=== PATIENT | female | born 2000 | race Caucasian/White ===

== ENCOUNTER 2020-05-01 04:38 | Inpatient (IN) ==
[2020-05-01] MEDS ORDERED: BUTORPHANOL TARTRATE 1 MG/ML VIAL IV PRN (05:05)
[2020-05-01] MEDS ORDERED: ALBUTEROL HFA 8 GM INHALER INH PRN (05:29)
[2020-05-01 05:37] LABS: Hematocrit (blood only) 33.5 % (37-47); Hemoglobin 10.7 g/dL (12.0-16.0); Mean Corpuscular Hemoglobin 29.2 pg (25-34); Mean Corpuscular Volume 91.5 fL (80-100); Platelet Count 259 K/uL (130-400); RDW Coefficient of Variation 15.3 % (11.5-14.5); RDW Standard Deviation 51.1 fL (36.4-46.3); Red Blood Count 3.66 M/uL (4.2-5.4); White Blood Count 16.34 K/uL (4.8-10.8)
[2020-05-01 05:45] LABS: Mean Corpuscular Hgb Conc 31.9 g/dL (32-36)
[2020-05-01] MEDS: LACTATED RINGER'S 1,000 ML IV PRN ×4 (07:19→17:08)
[2020-05-01] MEDS ORDERED: OXYTOCIN 30 UNITS/500 ML BAG IV PRN ×2 (07:44→18:22)
--- NOTE | 2020-05-01 07:52 | History & Physical Report ---
Date of Service May 01, 2020 Assessment & Plan (1) Spontaneous rupture of amniotic membranes: 19 yo at 39.4 wks with SROM/ PROM, no cervical change, GDMA2 on insulin, smoker, GBS negative VSS Afebrile FHR reassuring Plan to augment with Oxytocin, epidural for pain when she desires Continue to monitor (2) Gestational diabetes mellitus (GDM): History of Present Illness Primary Care Provider: NO PCP Patient is a 19 yo at 39.4 wks who presented with SROM at 02:30 this morning It has been a lot and clear Contractions irregular No VB +FM Her has been complicated by 1) GDAM2: on insulin, 10 units daily, last growth US was normal 2) Asthma 3) smoker: 4-5 cig/ day 4) obesity 5) h/o depresion: of meds, desires to restart Prozac Allergies Allergy/AdvReac Type Severity Reaction Status Date / Time amoxicillin Allergy Hives Verified 04/23/20 23:37 Penicillins Allergy Hives Verified 04/23/20 23:37 Sulfa (Sulfonamide Allergy Hives Verified 04/23/20 23:37 Antibiotics) Home Medications Home Medications Medication Instructions Recorded Confirmed Type vit-iron fum-folic ac 1 tab PO DAILY 01/21/20 05/01/20 History [ Vitamin] albuterol sulfate 2 puff INHALATION Q4 PRN 04/23/20 05/01/20 History Novolin N Flexpen 10 units SC HS 05/01/20 05/01/20 History Patient History Medical History Anxiety Asthma Depression Surgical History History of appendectomy History of tonsillectomy [place] teeth extracted Social History Preferred Language: [place] Communication Ability: Effective 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 Beliefs That Will Affect Care: None marital status: Single Current Living Situation: Alone Other Information That Helps Us Care for You: No Feels Safe at Home: Yes Safety Concerns: Feels Safe At This Time Smoking Status: Current every day smoker Tobacco Type: cigarettes ; Cigarettes Per Day: 5 ; Do You Dip or Chew Tobacco: No ; Second Hand Exposure: Yes ; Tobacco Cessation Education Requested by Patient: No Hx Alcohol Use: No Hx Substance Use: No OB History [employer] History No h/o STD's, n HSV/ Chlam/ GC Review of Systems All systems reviewed & are unremarkable except as noted in HPI & below Physical Exam Constitutional: WD/WN, vitals as above well developed and well nourished Comfortable, NAD Gastrointestinal (Abdomen): normal bowel sounds, soft, nontender, no hepatosplenomegaly (Gravid: Alex 7-8 lb) Genitourinary: normal external appearance OB Exam Abdomen: + vertex Manual OB Exam: + cervical dilation 2 cm, + cervical effacement 70% and + station high OB Exam Monitor Tracing: + external uterine monitor used and + category I Results & Data Vital Signs (Past 12 Hours) Vital Signs Temp Pulse Resp BP 05/01/20 07:00 36.5 C 101 H 20 109/61 05/01/20 04:53 36.7 C 133 H 20 123/74 Laboratory Results Lab Results 05/01/20 05/01/20 05/01/20 Range/Units 05:11 05:25 07:04 WBC 16.34 H (4.8-10.8) K/uL RBC 3.66 L (4.2-5.4) M/uL Hgb 10.7 L (12.0-16.0) g/dL Hct 33.5 L (37-47) % MCV 91.5 (80-100) fL MCH 29.2 (25-34) pg MCHC 31.9 L (32-36) g/dL RDW Std Deviation 51.1 H (36.4-46.3) fL RDW Coeff of Ruddy 15.3 H (11.5-14.5) % Plt Count 259 (130-400) K/uL MPV 10.0 (7.4-10.4) fL POC Glucose 123 H 91 (70-99) mg/dl
--- NOTE | 2020-05-01 08:46 | Obstetrical Progress Note ---
Date of Service May 01, 2020 Assessment & Plan Admission and Anticipated Discharge Date Admission Date: May 01, 2020 Subjective Her nurse was unable to monitor contractions on her side and asked for intruterine monitors Placed IUPC and fse Continue to monitor Results & Data ([facility]) Vital Signs (Past 12 Hours) Vital Signs Temp Pulse Resp BP 05/01/20 08:14 96 H 20 118/66 05/01/20 07:00 36.5 C 101 H 20 109/61 05/01/20 04:53 36.7 C 133 H 20 123/74
[2020-05-01] MEDS ORDERED: GLUCOSE 10 TABS/TUBE PO PRN (09:00)
[2020-05-01] MEDS ORDERED: GLUCAGON FOR INJ 1 MG VIAL IM PRN (09:00)
[2020-05-01] MEDS: INSULIN ASPART 100 UNITS/ML 3 ML PEN SC SCH ×3 (09:00→16:42)
[2020-05-01] MEDS ORDERED: CARBOHYDRATES FOR HYPOGLYCEMIA PO PRN (09:00)
[2020-05-01] MEDS ORDERED: DEXTROSE 50% 50 ML SYRINGE IV PRN (09:00)
[2020-05-01] MEDS ORDERED: GLUCOSE 40% GEL 15 GM TUBE PO PRN (09:00)
[2020-05-01] MEDS ORDERED: fentaNYL citrate 100 MCG/2 ML VIAL ONE (09:28)
[2020-05-01] MEDS ORDERED: BUPIVACAINE 0.25% 30 ML VIAL ONE (09:28)
[2020-05-01] MEDS ORDERED: ePHEDrine sulfate 50 MG/ML AMP ONE (09:28)
[2020-05-01] MEDS ORDERED: fentaNYL 2MCG/ML ROPIV 1.25MG/ML 100 ML BAG EPI ONE (09:29)
--- NOTE | 2020-05-01 09:55 | Anesthesiology Consultation ---
Date of Service May 01, 2020 Assessment & Plan (1) Encounter for pre-operative examination: Chart Review Chart Review: Acceptable Risk for Surgery and Patient NOT seen in Pre Admission Testing Consults Requested none ASA ASA3 Proposed Anesthesia Anesthesia Type: Labor Epidural Risk / Benefits Reviewed With: PT / POA / Parent / Guardian, Accepts Plan and Informed Consent Obtained History Height/Weight Height: 5 ft 2 in Weight: 112.037 kg Allergies Allergy/AdvReac Type Severity Reaction Status Date / Time amoxicillin Allergy Hives Verified 04/23/20 23:37 Penicillins Allergy Hives Verified 04/23/20 23:37 Sulfa (Sulfonamide Allergy Hives Verified 04/23/20 23:37 Antibiotics) Medications Home Medications Medication Instructions Recorded Confirmed Last Taken vit-iron fum-folic ac 1 tab PO DAILY 01/21/20 05/01/20 04/30/20 [ Vitamin] albuterol sulfate 2 puff INHALATION Q4 PRN 04/23/20 05/01/20 Unknown Novolin N Flexpen 10 units SC HS 05/01/20 05/01/20 04/30/20 21:00 Active Medications Generic Name Dose Route Start Last Admin Trade Name Freq PRN Reason Stop Dose Admin Lactated Ringer's 1,000 mls @ 125 mls/hr 05/01/20 05:01 05/01/20 10:11 Lr IV 05/03/20 05:00 125 mls/hr .Q8H PRN Infusion L&D Protocol Protocol Oxytocin 30 units in 500 mls @ 2 mls/hr 05/01/20 07:44 05/01/20 10:24 Pitocin IV 05/03/20 07:43 0.36 units/hr .Q24H PRN 6 mls/hr Labor Induction/Augmentation Titration Protocol 0.12 UNITS/HR NPO Date Last Intake of Fluids: 05/01/20 Time Last Intake of Fluids: 10:24 Date Last Intake of Solids: 04/30/20 Time Last Intake of Solids: 20:00 Past Medical History Medical History Anxiety Asthma Depression Exercise / Class Metabolic Activity II 4-5 Yardwork/Stairs/Walk up hill Past Surgical History Surgical History History of appendectomy History of tonsillectomy [place] teeth extracted Past Anesthesia History No Hx of Anesthesia Complications History of PONV No Hx of PONV Social History Smoking Status: Current every day smoker tobacco type: cigarettes Smoking cigarettes per day: 5 Do You Dip or Chew Tobacco: No Hx Alcohol Use: No Hx Substance Use: No substance use type: does not use Review of Systems Patient denies history of abnormal bleeding or bleeding disorder. Patient denies active use of anticoagulants other than low dose aspirin. Patient denies numbness, tingling or weakness in lower extremities. Physical Exam Vital Signs Last Vital Signs Temp 36.4 C L 05/01/20 09:10 Pulse 97 H 05/01/20 09:14 Resp 20 05/01/20 09:10 BP 144/84 H 05/01/20 09:14 Constitutional + obese (Gravid) ENMT Mouth: no TMJ abnormality and oral opening not small Thyromental Distance: > or= 3.5 Finger Breadths Mallampati Class: II Mouth / Teeth: 1. Tongue ring 2. Chip Neck normal visual inspection; neck extension not limited Respiratory normal respiratory effort Auscultation: lungs clear to auscultation bilaterally Cardiovascular Rate/Rhythm: regular rate and regular rhythm Heart Sounds: no murmur Neurologic moves all extremities Motor/Sensory: no sensory deficit Psychiatric Orientation: alert and oriented x 3 Testing Laboratory Results 05/01/20 05:25 05/01/20 05/01/20 05/01/20 09:03 07:04 05:11 POC Glucose 85 91 123 H
[2020-05-01] MEDS ORDERED: DiphenhydrAMINE HCL 50 MG/ML VIAL IV PRN (10:25)
[2020-05-01] MEDS ORDERED: NALOXONE HCL 1 MG in SODIUM CHLORIDE 0.9% 1000ML 1,000 ML IV PRN (10:25)
[2020-05-01] MEDS ORDERED: ONDANSETRON INJ 2 MG/ML 2 ML VIAL IV PRN ×3 (10:25→21:04)
[2020-05-01] MEDS ORDERED: fentaNYL 2MCG/ML ROPIV 1.25MG/ML 100 ML BAG EPI PRN (10:25)
[2020-05-01] MEDS ORDERED: NALOXONE HCL 0.4 MG/1 ML VIAL/CARP IV PRN (10:25)
[2020-05-01] MEDS ORDERED: ePHEDrine sulfate 50 MG/ML AMP IV PRN (10:25)
[2020-05-01] MEDS ORDERED: miSOPROStoL 200 MCG TAB ONE ×3 (16:38→16:51)
[2020-05-01] MEDS ORDERED: METHYLERGONOVINE MALEATE 0.2 MG/ML AMP ONE ×2 (16:39→17:10)
[2020-05-01] MEDS ORDERED: CLINDAMYCIN 900 MG in DEXTROSE 5% 50 ML IV STA (16:42)
[2020-05-01] MEDS ORDERED: CARBOPROST TROMETHAMINE 250 MCG/ML AMPUL ONE ×2 (16:48→17:26)
[2020-05-01] MEDS ORDERED: SODIUM CHLORIDE 0.9% 250 ML IV PRN (16:54)
[2020-05-01] MEDS: OXYTOCIN 30 UNITS/500 ML BAG IV PRN ×2 (16:58→17:33)
[2020-05-01] MEDS ORDERED: ALBUMIN HUMAN 5% 12.5 GM/250 ML VIAL IV ONE (17:12)
[2020-05-01] MEDS ORDERED: TRANEXAMIC ACID / 0.7% NACL 1000MG/100ML BAG IV ONE (17:41)
[2020-05-01 17:47] LABS: Hematocrit (blood only) 29.7 % (37-47); Hemoglobin 9.4 g/dL (12.0-16.0)
[2020-05-01] MEDS ORDERED: PHENYLEPHRINE 100MCG/ML 5ML SYR ONE (18:03)
[2020-05-01] MEDS ORDERED: HYDROCORTISONE ACETATE 25 MG SUPP PR PRN (18:22)
[2020-05-01] MEDS ORDERED: SUPERCREAM 0.870% 15 GM JAR EXT PRN (18:22)
[2020-05-01] MEDS ORDERED: METHYLERGONOVINE MALEATE 0.2 MG/ML AMP IM ONE (18:22)
[2020-05-01] MEDS ORDERED: DIPHTHERIA/TETANUS/PERTUSSIS 0.5 ML SYR/VIAL IM ONE (18:22)
[2020-05-01] MEDS ORDERED: ACETAMINOPHEN 325 MG TAB PO PRN (18:22)
[2020-05-01] MEDS ORDERED: CARBOPROST TROMETHAMINE 250 MCG/ML AMPUL IM ONE (18:22)
[2020-05-01] MEDS ORDERED: MEASLES, MUMPS & RUBELLA VIRUS VIAL SQ ONE (18:22)
[2020-05-01] MEDS ORDERED: BENZOCAINE 20% AER SPR 82.5 GM CAN EXT PRN (18:22)
[2020-05-01] MEDS ORDERED: bisacodyL 10 MG SUPP PR PRN (18:22)
[2020-05-01] MEDS ORDERED: OXYCODONE/ACETAMINOPHEN 5mg/325mg TAB PO PRN (18:22)
[2020-05-01] MEDS ORDERED: miSOPROStoL 200 MCG TAB PR ONE (18:22)
[2020-05-01 18:27] LABS: Fibrinogen 506 mg/dl (184-400); Partial Thromboplastin Time 28.2 Seconds (21.0-31.0)
[2020-05-01] MEDS: METHYLERGONOVINE MALEATE 0.2 MG TAB PO SCH ×2 (19:57→21:18)
--- NOTE | 2020-05-01 20:02 | Delivery Summary ---
DATE OF OPERATION: 05/01/2020 DATE OF DELIVERY: 05/01/2020. TIME OF DELIVERY: 1617 p.m. OPERATION: Spontaneous vaginal delivery, hemorrhage managed by medical therapy, bed side curettage, Bakri balloon placement and IV Crystalloids and Packed RBC transfusion. DETAILS OF DELIVERY: The patient was found to be fully dilated and desired to push. She pushed for about 25 minutes and delivered the head without difficulty and then shoulders were delivered with minimal traction. There was a nuchal cord around the neck x2. Those were reduced and baby was handed to the mother where mouth and nose were suctioned. Cord was clamped x2 and cut at 1 minute delay. Cord blood was obtained. Vagina and perineum were checked for lacerations. There were first degree lacerations on both labia as well as at the posterior fourchette. Those were repaired with 3-0 Vicryl on SH needle and excellent hemostasis was achieved. Then placenta was found to be in the vagina, delivered spontaneous as intact and complete. Uterus was explored and found to be boggy and full of blood clots. Those were emptied and then massaged bimanually. IV oxytocin was started as a bolus and the uterus was still boggy with clots in the cavity. Then rectal Cytotec tablets were placed and IM Methergine was given. Then gloves were changed and with a Boom curette, uterine cavity was curetted at the bedside while her nurse was applying gentle fundal pressure towards myself to stabilize it. The patient had good epidural, did not feel any pain nor discomfort. All uterine cavity and krishna were curetted and only clots were obtained. Uterine massage was done again. The patient was still trickling bright red blood. mild asthma. At that point her pulse ox was 100%, blood pressure was stable and pulse was at low 100s. Crane catheter was also inserted. She has a history of mild intermittent asthma, controlled by Albuterol inhaler as needed ( 1-2 times amonth) She was given Hemabate IM one dose. Despite all those measures patient was still having bright red bleeding. Cervix and vagina were checked to be intact, the trickling of blood was coming from uterine cavity. Her blood pressure dropped to 60s/30s with a pulse going up to 140s. She was started a second IV site and IV lactated ringer bolus was started. She was placed in Trendelenburg position. Anesthesiologist was called to the room and gave her IV albumin and started IV crystalloids, type and crossed 2 units. Then the Bakri balloon was inserted into the uterus, inflated with sterile water about 250 mL and then bleeding stopped. Uterus was firm and no bleeding from the Bakri catheter. With IV fluids and IV albumin her blood pressures came up to 90s/50s, and pulse came down to low 100. The patient was cooperative and speaking all through. She was also started on IV clindamycin and a total EBL was about 1000 mL with best estimate. The baby was a viable male , Apgars were 8/9, weight is pending. No other complications happened. I was present during whole procedure. Dr Murphy was present for her part. see her notes for details. Dr Santos also presented for help. I attest to the content of the Intraoperative Record and any orders documented therein. Any exceptions are noted below. JUANY
[2020-05-01] MEDS ORDERED: METHYLERGONOVINE MALEATE 0.2 MG/ML AMP IM STA (20:03)
--- NOTE | 2020-05-01 20:03 | Obstetrical Progress Note ---
Date of Service May 01, 2020 Assessment & Plan Admission and Anticipated Discharge Date Admission Date: May 01, 2020 Subjective Late entry from 1830 Patient is reevaluated She feels well VSS Afebrile No bleeding from Bakri balloon tube, none in perineum Uterus is firm Crane: dark small urine in tube PRBBC is ready, she signed an informed consent for transfusion Continue to monitor closely Results & Data ([facility]) Vital Signs (Past 12 Hours) Vital Signs Temp Pulse Resp BP Pulse Ox 05/01/20 19:56 102 H 99 05/01/20 19:51 101 H 97 05/01/20 19:46 102 H 98 05/01/20 19:45 102 H 107/59 L 05/01/20 19:41 100 H 97 05/01/20 19:38 36.9 C 100 H 18 110/58 L 96 05/01/20 19:36 103 H 97 05/01/20 19:31 105 H 96 05/01/20 19:30 103 H 20 109/58 L 05/01/20 19:26 105 H 97 05/01/20 19:21 106 H 98 05/01/20 19:16 109 H 97 05/01/20 19:15 106 H 109/55 L 05/01/20 19:11 108 H 95 05/01/20 19:08 37.2 C 104 H 20 111/55 L 96 05/01/20 19:06 115 H 98 05/01/20 19:02 20 05/01/20 19:01 106 H 98 05/01/20 19:00 107 H 102/55 L 05/01/20 18:56 104 H 96 05/01/20 18:53 37.2 C 104 H 20 105/66 98 05/01/20 18:51 109 H 99 05/01/20 18:46 108 H 97 05/01/20 18:45 102 H 20 102/57 L 05/01/20 18:41 105 H 97 05/01/20 18:36 108 H 95 05/01/20 18:35 37.1 C 104 H 20 107/58 L 95 05/01/20 18:31 106 H 96 05/01/20 18:30 103 H 20 107/58 L 05/01/20 18:26 103 H 97 05/01/20 18:21 105 H 99 05/01/20 18:16 104 H 98 05/01/20 18:15 104 H 100/55 L 05/01/20 18:14 36.9 C 20 05/01/20 18:11 103 H 87 L 05/01/20 18:06 112 H 100 05/01/20 18:01 132 H 100 05/01/20 18:00 94 H 20 102/59 L 05/01/20 17:56 112 H 100 05/01/20 17:51 100 H 100 05/01/20 17:50 98 H 96/54 L 05/01/20 17:48 108 H 95/52 L 05/01/20 17:46 110 H 103/52 L 100 05/01/20 17:44 118 H 100/51 L 84 L 05/01/20 17:42 115 H 100/53 L 05/01/20 17:41 111 H 100 05/01/20 17:40 108 H 99/56 L 05/01/20 17:38 111 H 94/58 L 05/01/20 17:36 117 H 93/50 L 98 05/01/20 17:34 114 H 97/65 L 05/01/20 17:32 108 H 97/59 L 05/01/20 17:31 112 H 100 05/01/20 17:30 107 H 96/54 L 81 L 05/01/20 17:28 104 H 101/56 L 05/01/20 17:26 102 H 98/53 L 100 05/01/20 17:24 103 H 98/53 L 05/01/20 17:22 104 H 97/55 L 05/01/20 17:21 106 H 100 05/01/20 17:20 108 H 100/57 L 05/01/20 17:16 99 H 71 L 05/01/20 17:11 110 H 78/49 L 100 05/01/20 17:09 109 H 68/39 L 05/01/20 17:07 121 H 63/32 L 05/01/20 17:06 132 H 100 05/01/20 17:03 112 H 63/29 L 05/01/20 17:01 130 H 100 05/01/20 16:59 127 H 77/38 L 05/01/20 16:56 120 H 100 05/01/20 16:51 113 H 100 07/20/20 16:46 113 H 98 0720/20 16:41 104 H 98 0720/20 16:39 111 H 112/53 L 0720 16:36 113 H 97 20 16:31 111 H 97 20 16:26 112 H 97 20 16:21 109 H 98 20 16:16 158 H 100 20 16:15 105 H 132/60 20 16:11 170 H 100 20 16:06 101 H 99 20 16:01 107 H 97 20 16:00 36.7 C 100 H 20 122/63 0720 15:56 105 H 99 0720 15:52 101 H 79 L 05/01/20 15:51 105 H 99 20 15:46 96 H 97 20 15:45 100 H 114/54 L 05/01/20 15:41 111 H 99 20 15:36 99 H 99 20 15:31 102 H 98 2020 15:30 100 H 20 114/58 L 20 15:26 97 H 97 20/20 15:21 92 H 98 20 15:16 98 H 111/52 L 98 05/01/20 15:11 99 H 98 20 15:06 103 H 98 05/01/20 15:01 100 H 98 05/01/20 15:00 36.6 C 98 H 20 111/54 L 05/01/20 14:56 98 H 98 20 14:51 97 H 98 20/20 14:46 101 H 98 20/20 14:45 89 109/53 L 20 14:41 107 H 98 20/20 14:36 107 H 98 20/20 14:31 95 H 97 2020 14:30 20 2020 14:29 89 101/52 L 05/01/20 14:26 98 H 97 20/20 14:21 102 H 97 20/20 14:16 101 H 106/56 L 97 20 14:11 97 H 97 07/20/20 14:06 94 H 98 05/01/20 14:01 105 H 97 05/01/20 14:00 20 05/01/20 13:59 103 H 98/54 L 05/01/20 13:56 105 H 98 05/01/20 13:51 104 H 98 05/01/20 13:46 111 H 98 05/01/20 13:45 96 H 107/57 L 05/01/20 13:41 90 99 05/01/20 13:36 95 H 97 05/01/20 13:31 101 H 98 05/01/20 13:30 20 05/01/20 13:29 102 H 98/54 L 05/01/20 13:26 99 H 96 05/01/20 13:21 101 H 98 05/01/20 13:16 86 97/53 L 95 05/01/20 13:11 87 96 05/01/20 13:06 107 H 99 05/01/20 13:01 111 H 98 05/01/20 13:00 36.5 C 104 H 20 113/58 L 05/01/20 12:56 101 H 95 05/01/20 12:51 103 H 95 05/01/20 12:46 104 H 96 05/01/20 12:44 106 H 100/54 L 05/01/20 12:41 102 H 95 05/01/20 12:36 105 H 96 05/01/20 12:31 103 H 95 05/01/20 12:30 20 05/01/20 12:29 104 H 104/54 L 05/01/20 12:26 105 H 96 05/01/20 12:21 94 H 97 05/01/20 12:16 97 H 96 05/01/20 12:14 98 H 96/55 L 05/01/20 12:11 99 H 95 05/01/20 12:06 98 H 95 05/01/20 12:01 100 H 96 05/01/20 12:00 99 H 16 110/57 L 05/01/20 11:56 102 H 95 05/01/20 11:51 100 H 96 05/01/20 11:46 95 H 95 05/01/20 11:45 100 H 97/51 L 05/01/20 11:41 100 H 96 05/01/20 11:36 103 H 96 07/20/20 11:31 95 H 95 05/01/20 11:30 18 05/01/20 11:29 100 H 101/49 L 05/01/20 11:26 104 H 96 05/01/20 11:21 112 H 98 05/01/20 11:16 83 97 05/01/20 11:15 89 110/55 L 05/01/20 11:11 104 H 97 05/01/20 11:06 101 H 99 05/01/20 11:01 102 H 97 05/01/20 11:00 36.4 C L 91 H 20 109/59 L 05/01/20 10:56 95 H 99 05/01/20 10:51 106 H 97 05/01/20 10:46 110 H 99 05/01/20 10:44 115 H 112/69 05/01/20 10:41 105 H 99 05/01/20 10:36 116 H 98 05/01/20 10:31 117 H 98 05/01/20 10:30 20 05/01/20 10:29 112 H 117/62 05/01/20 10:27 115 H 110/56 L 05/01/20 10:26 116 H 97 05/01/20 10:25 109 H 113/50 L 05/01/20 10:23 114 H 114/56 L 05/01/20 10:21 110 H 121/57 L 99 05/01/20 10:20 20 05/01/20 10:19 103 H 120/58 L 05/01/20 10:17 115 H 129/69 05/01/20 10:16 114 H 99 05/01/20 10:15 105 H 121/65 05/01/20 10:13 110 H 123/69 05/01/20 10:11 105 H 122/68 98 05/01/20 10:09 109 H 20 138/82 05/01/20 10:06 111 H 97 05/01/20 10:01 108 H 98 05/01/20 09:56 114 H 99 05/01/20 09:14 97 H 144/84 H 05/01/20 09:10 36.4 C L 20 05/01/20 08:14 96 H 20 118/66
[2020-05-01] MEDS ORDERED: LACTATED RINGER'S 1,000 ML IV SCH (20:15)
[2020-05-01] MEDS ORDERED: OXYTOCIN 30 UNITS/500 ML BAG IV SCH (20:15)
[2020-05-01] MEDS ORDERED: Nursing to Pharmacy Communication SCH (21:00)
--- NOTE | 2020-05-01 21:10 | Obstetrical Progress Note ---
Date of Service May 01, 2020 Assessment & Plan Admission and Anticipated Discharge Date Admission Date: May 01, 2020 Subjective Patient is reevaluated Received 1 unit of PRBC She feels well, no more dizzy or light headed No CP/SOB/ Fever/ chills Hungry and thirsty, wants to eat VSS Afebrile Abd: soft, NT, fundus below U, -2, perineum dry, no VB Bakri tube has small dark blood and small in bag emptied 10 ml in bag 100 ml urine AP: 19 yo /p , and then hemorrhage, s/p IV oxytocin, IM Metherginex2, Hemabate x1, Tranexamic acid, Bakri baloon, 1 units of PRCBC transfusin VSS Afebrile Bleeding minimal Plan to continue with IV Oxytocin and PO Methergine Check H&H in 2 hours Continue to monitor closely Results & Data ([facility]) Vital Signs (Past 12 Hours) Vital Signs Temp Pulse Resp BP Pulse Ox 05/01/20 21:01 103 H 98 05/01/20 21:00 98 H 124/63 05/01/20 20:56 98 H 98 05/01/20 20:51 102 H 99 20 20:46 100 H 97 05/01/20 20:41 103 H 98 05/01/20 20:36 100 H 99 20 20:31 106 H 97 20 20:30 37.1 C 99 H 20 123/58 L 05/01/20 20:26 99 H 95 20 20:21 102 H 97 20 20:16 101 H 97 20 20:11 101 H 97 20 20:08 100 H 109/60 20 20:06 100 H 98 20 20:01 101 H 100 20 20:00 101 H 20 107/58 L 20 19:56 102 H 99 20 19:51 101 H 97 2020 19:46 102 H 98 20 19:45 102 H 107/59 L 20 19:41 100 H 97 20 19:38 36.9 C 100 H 20 107/58 L 98 07/20/20 19:36 103 H 97 05/01/20 19:31 105 H 96 05/01/20 19:30 103 H 20 109/58 L 05/01/20 19:26 105 H 97 05/01/20 19:21 106 H 98 05/01/20 19:16 109 H 97 05/01/20 19:15 106 H 109/55 L 05/01/20 19:11 108 H 95 05/01/20 19:08 37.2 C 104 H 20 111/55 L 96 05/01/20 19:06 115 H 98 05/01/20 19:02 20 05/01/20 19:01 106 H 98 05/01/20 19:00 107 H 102/55 L 05/01/20 18:56 104 H 96 05/01/20 18:53 37.2 C 104 H 20 105/66 98 05/01/20 18:51 109 H 99 05/01/20 18:46 108 H 97 05/01/20 18:45 102 H 20 102/57 L 05/01/20 18:41 105 H 97 05/01/20 18:36 108 H 95 05/01/20 18:35 37.1 C 104 H 20 107/58 L 95 05/01/20 18:31 106 H 96 05/01/20 18:30 103 H 20 107/58 L 05/01/20 18:26 103 H 97 05/01/20 18:21 105 H 99 05/01/20 18:16 104 H 98 05/01/20 18:15 104 H 100/55 L 05/01/20 18:14 36.9 C 20 05/01/20 18:11 103 H 87 L 05/01/20 18:06 112 H 100 05/01/20 18:01 132 H 100 05/01/20 18:00 94 H 20 102/59 L 05/01/20 17:56 112 H 100 05/01/20 17:51 100 H 100 05/01/20 17:50 98 H 96/54 L 05/01/20 17:48 108 H 95/52 L 05/01/20 17:46 110 H 103/52 L 100 05/01/20 17:44 118 H 100/51 L 84 L 05/01/20 17:42 115 H 100/53 L 05/01/20 17:41 111 H 100 05/01/20 17:40 108 H 99/56 L 05/01/20 17:38 111 H 94/58 L 05/01/20 17:36 117 H 93/50 L 98 05/01/20 17:34 114 H 97/65 L 05/01/20 17:32 108 H 97/59 L 05/01/20 17:31 112 H 100 05/01/20 17:30 107 H 96/54 L 81 L 05/01/20 17:28 104 H 101/56 L 05/01/20 17:26 102 H 98/53 L 100 05/01/20 17:24 103 H 98/53 L 05/01/20 17:22 104 H 97/55 L 05/01/20 17:21 106 H 100 05/01/20 17:20 108 H 100/57 L 05/01/20 17:16 99 H 71 L 05/01/20 17:11 110 H 78/49 L 100 05/01/20 17:09 109 H 68/39 L 05/01/20 17:07 121 H 63/32 L 05/01/20 17:06 132 H 100 05/01/20 17:03 112 H 63/29 L 05/01/20 17:01 130 H 100 05/01/20 16:59 127 H 77/38 L 05/01/20 16:56 120 H 100 05/01/20 16:51 113 H 100 05/01/20 16:46 113 H 98 05/01/20 16:41 104 H 98 05/01/20 16:39 111 H 112/53 L 05/01/20 16:36 113 H 97 05/01/20 16:31 111 H 97 05/01/20 16:26 112 H 97 05/01/20 16:21 109 H 98 05/01/20 16:16 158 H 100 05/01/20 16:15 105 H 132/60 05/01/20 16:11 170 H 100 05/01/20 16:06 101 H 99 05/01/20 16:01 107 H 97 05/01/20 16:00 36.7 C 100 H 20 122/63 05/01/20 15:56 105 H 99 05/01/20 15:52 101 H 79 L 05/01/20 15:51 105 H 99 05/01/20 15:46 96 H 97 05/01/20 15:45 100 H 114/54 L 05/01/20 15:41 111 H 99 05/01/20 15:36 99 H 99 05/01/20 15:31 102 H 98 05/01/20 15:30 100 H 20 114/58 L 05/01/20 15:26 97 H 97 05/01/20 15:21 92 H 98 05/01/20 15:16 98 H 111/52 L 98 05/01/20 15:11 99 H 98 05/01/20 15:06 103 H 98 05/01/20 15:01 100 H 98 05/01/20 15:00 36.6 C 98 H 20 111/54 L 05/01/20 14:56 98 H 98 05/01/20 14:51 97 H 98 05/01/20 14:46 101 H 98 05/01/20 14:45 89 109/53 L 05/01/20 14:41 107 H 98 05/01/20 14:36 107 H 98 05/01/20 14:31 95 H 97 05/01/20 14:30 20 05/01/20 14:29 89 101/52 L 05/01/20 14:26 98 H 97 05/01/20 14:21 102 H 97 05/01/20 14:16 101 H 106/56 L 97 05/01/20 14:11 97 H 97 05/01/20 14:06 94 H 98 05/01/20 14:01 105 H 97 05/01/20 14:00 20 05/01/20 13:59 103 H 98/54 L 05/01/20 13:56 105 H 98 05/01/20 13:51 104 H 98 05/01/20 13:46 111 H 98 05/01/20 13:45 96 H 107/57 L 05/01/20 13:41 90 99 05/01/20 13:36 95 H 97 05/01/20 13:31 101 H 98 05/01/20 13:30 20 05/01/20 13:29 102 H 98/54 L 05/01/20 13:26 99 H 96 05/01/20 13:21 101 H 98 05/01/20 13:16 86 97/53 L 95 05/01/20 13:11 87 96 05/01/20 13:06 107 H 99 05/01/20 13:01 111 H 98 05/01/20 13:00 36.5 C 104 H 20 113/58 L 05/01/20 12:56 101 H 95 05/01/20 12:51 103 H 95 05/01/20 12:46 104 H 96 05/01/20 12:44 106 H 100/54 L 05/01/20 12:41 102 H 95 05/01/20 12:36 105 H 96 05/01/20 12:31 103 H 95 05/01/20 12:30 20 05/01/20 12:29 104 H 104/54 L 05/01/20 12:26 105 H 96 05/01/20 12:21 94 H 97 05/01/20 12:16 97 H 96 05/01/20 12:14 98 H 96/55 L 05/01/20 12:11 99 H 95 05/01/20 12:06 98 H 95 05/01/20 12:01 100 H 96 05/01/20 12:00 99 H 16 110/57 L 05/01/20 11:56 102 H 95 05/01/20 11:51 100 H 96 05/01/20 11:46 95 H 95 05/01/20 11:45 100 H 97/51 L 05/01/20 11:41 100 H 96 05/01/20 11:36 103 H 96 05/01/20 11:31 95 H 95 05/01/20 11:30 18 05/01/20 11:29 100 H 101/49 L 05/01/20 11:26 104 H 96 05/01/20 11:21 112 H 98 05/01/20 11:16 83 97 05/01/20 11:15 89 110/55 L 05/01/20 11:11 104 H 97 05/01/20 11:06 101 H 99 05/01/20 11:01 102 H 97 05/01/20 11:00 36.4 C L 91 H 20 109/59 L 05/01/20 10:56 95 H 99 05/01/20 10:51 106 H 97 05/01/20 10:46 110 H 99 05/01/20 10:44 115 H 112/69 05/01/20 10:41 105 H 99 05/01/20 10:36 116 H 98 05/01/20 10:31 117 H 98 05/01/20 10:30 20 05/01/20 10:29 112 H 117/62 05/01/20 10:27 115 H 110/56 L 05/01/20 10:26 116 H 97 05/01/20 10:25 109 H 113/50 L 05/01/20 10:23 114 H 114/56 L 05/01/20 10:21 110 H 121/57 L 99 05/01/20 10:20 20 05/01/20 10:19 103 H 120/58 L 05/01/20 10:17 115 H 129/69 05/01/20 10:16 114 H 99 05/01/20 10:15 105 H 121/65 05/01/20 10:13 110 H 123/69 05/01/20 10:11 105 H 122/68 98 05/01/20 10:09 109 H 20 138/82 05/01/20 10:06 111 H 97 05/01/20 10:01 108 H 98 05/01/20 09:56 114 H 99 05/01/20 09:14 97 H 144/84 H 05/01/20 09:10 36.4 C L 20
[2020-05-01] MEDS: FERROUS SULFATE 325 MG TAB PO SCH (21:19)
[2020-05-01] MEDS: DOCUSATE SODIUM 100 MG CAP PO SCH (21:19)
[2020-05-01] MEDS ORDERED: INSULIN ASPART 100 UNITS/ML 3 ML PEN SC SCH (21:55)
[2020-05-01] MEDS: OXYTOCIN 20 UNITS in LACTATED RINGER'S 1,000 ML IV SCH (22:08)
[2020-05-01 23:02] LABS: Hematocrit (blood only) 29.6 % (37-47); Hemoglobin 9.6 g/dL (12.0-16.0); Mean Corpuscular Hemoglobin 28.7 pg (25-34); Mean Corpuscular Hgb Conc 32.4 g/dL (32-36); Mean Corpuscular Volume 88.4 fL (80-100); Platelet Count 222 K/uL (130-400); RDW Coefficient of Variation 16.2 % (11.5-14.5); RDW Standard Deviation 51.9 fL (36.4-46.3); Red Blood Count 3.35 M/uL (4.2-5.4); White Blood Count 25.97 K/uL (4.8-10.8)
[2020-05-01 23:18] LABS: Partial Thromboplastin Time 28.2 Seconds (21.0-31.0); Prothrombin Time 10.6 Seconds (9.0-12.0)
[2020-05-01 23:22] LABS: Basophils # (auto) 0.01 K/uL (0-0.2); Eosinophils # (auto) 0.01 K/uL (0-0.5); Immature Granulocytes # (auto) 0.13 K/uL (0.00-0.02); Immature Granulocytes % (auto) 0.5 %; Lymphocytes # (auto) 1.55 K/uL (1.2-3.4); Monocytes # (auto) 0.97 K/uL (0.11-0.59); Monocytes % (auto) 3.7 %; Neutrophils % (auto) 89.8 %
[2020-05-01 23:34] LABS: Fibrinogen 460 mg/dl (184-400)
[2020-05-02] MEDS: IBUPROFEN 600 MG TAB PO PRN ×2 (00:03→16:04)
[2020-05-02] MEDS: METHYLERGONOVINE MALEATE 0.2 MG TAB PO SCH ×6 (00:03→19:57)
[2020-05-02] MEDS: CLINDAMYCIN 900 MG in DEXTROSE 5% 50 ML IV SCH ×3 (00:04→15:58)
--- NOTE | 2020-05-02 00:12 | Obstetrical Progress Note ---
Date of Service May 02, 2020 Assessment & Plan Admission and Anticipated Discharge Date Admission Date: May 01, 2020 Subjective Patient is reevaluated She feels well, no more No dizziness or light headedness/ CP/SOB/ Fever/ chills She needs to move her bowels VSS Afebrile Abd: soft, NT, fundus below U, -2, perineum dry, no VB Bakri tube has small dark blood and small in bag , about 20 ml total Repeat labs: H&H stable Coags WNL Lab Results 05/01/20 05/01/20 05/01/20 Range/Units 05:11 05:25 05:25 WBC 16.34 H (4.8-10.8) K/uL RBC 3.66 L (4.2-5.4) M/uL Hgb 10.7 L (12.0-16.0) g/dL Hct 33.5 L (37-47) % MCV 91.5 (80-100) fL MCH 29.2 (25-34) pg MCHC 31.9 L (32-36) g/dL RDW Std Deviation 51.1 H (36.4-46.3) fL RDW Coeff of Ruddy 15.3 H (11.5-14.5) % Plt Count 259 (130-400) K/uL MPV 10.0 (7.4-10.4) fL Immature Gran % (Auto) % Neut % (Auto) % Lymph % (Auto) % [place] % (Auto) % Eos % (Auto) % Baso % (Auto) % Neut # (Auto) (1.4-6.5) K/uL Lymph # (Auto) (1.2-3.4) K/uL [place] # (Auto) (0.11-0.59) K/uL Eos # (Auto) (0-0.5) K/uL Baso # (Auto) (0-0.2) K/uL Immature Gran # (Auto) (0.00-0.02) K/uL PT (9.0-12.0) Seconds INR (0.9-1.1) APTT (21.0-31.0) Seconds PTT Ratio Fibrinogen (184-400) mg/dl POC Glucose 123 H (70-99) mg/dl Blood Type O Positive Blood Type Recheck Antibody Screen NEGATIVE Crossmatch See Detail 05/01/20 05/01/20 05/01/20 Range/Units 07:04 09:03 11:03 WBC (4.8-10.8) K/uL RBC (4.2-5.4) M/uL Hgb (12.0-16.0) g/dL Hct (37-47) % MCV (80-100) fL MCH (25-34) pg MCHC (32-36) g/dL RDW Std Deviation (36.4-46.3) fL RDW Coeff of Ruddy (11.5-14.5) % Plt Count (130-400) K/uL MPV (7.4-10.4) fL Immature Gran % (Auto) % Neut % (Auto) % Lymph % (Auto) % [place] % (Auto) % Eos % (Auto) % Baso % (Auto) % Neut # (Auto) (1.4-6.5) K/uL Lymph # (Auto) (1.2-3.4) K/uL [place] # (Auto) (0.11-0.59) K/uL Eos # (Auto) (0-0.5) K/uL Baso # (Auto) (0-0.2) K/uL Immature Gran # (Auto) (0.00-0.02) K/uL PT (9.0-12.0) Seconds INR (0.9-1.1) APTT (21.0-31.0) Seconds PTT Ratio Fibrinogen (184-400) mg/dl POC Glucose 91 85 84 (70-99) mg/dl Blood Type Blood Type Recheck Antibody Screen Crossmatch 05/01/20 05/01/20 05/01/20 Range/Units 13:03 14:07 15:03 WBC (4.8-10.8) K/uL RBC (4.2-5.4) M/uL Hgb (12.0-16.0) g/dL Hct (37-47) % MCV (80-100) fL MCH (25-34) pg MCHC (32-36) g/dL RDW Std Deviation (36.4-46.3) fL RDW Coeff of Ruddy (11.5-14.5) % Plt Count (130-400) K/uL MPV (7.4-10.4) fL Immature Gran % (Auto) % Neut % (Auto) % Lymph % (Auto) % [place] % (Auto) % Eos % (Auto) % Baso % (Auto) % Neut # (Auto) (1.4-6.5) K/uL Lymph # (Auto) (1.2-3.4) K/uL [place] # (Auto) (0.11-0.59) K/uL Eos # (Auto) (0-0.5) K/uL Baso # (Auto) (0-0.2) K/uL Immature Gran # (Auto) (0.00-0.02) K/uL PT (9.0-12.0) Seconds INR (0.9-1.1) APTT (21.0-31.0) Seconds PTT Ratio Fibrinogen (184-400) mg/dl POC Glucose 77 76 77 (70-99) mg/dl Blood Type Blood Type Recheck Antibody Screen Crossmatch 05/01/20 05/01/20 05/01/20 Range/Units 16:00 17:20 17:21 WBC (4.8-10.8) K/uL RBC (4.2-5.4) M/uL Hgb 9.4 L (12.0-16.0) g/dL Hct 29.7 L (37-47) % MCV (80-100) fL MCH (25-34) pg MCHC (32-36) g/dL RDW Std Deviation (36.4-46.3) fL RDW Coeff of Ruddy (11.5-14.5) % Plt Count (130-400) K/uL MPV (7.4-10.4) fL Immature Gran % (Auto) % Neut % (Auto) % Lymph % (Auto) % [place] % (Auto) % Eos % (Auto) % Baso % (Auto) % Neut # (Auto) (1.4-6.5) K/uL Lymph # (Auto) (1.2-3.4) K/uL [place] # (Auto) (0.11-0.59) K/uL Eos # (Auto) (0-0.5) K/uL Baso # (Auto) (0-0.2) K/uL Immature Gran # (Auto) (0.00-0.02) K/uL PT (9.0-12.0) Seconds INR (0.9-1.1) APTT (21.0-31.0) Seconds PTT Ratio Fibrinogen (184-400) mg/dl POC Glucose 80 (70-99) mg/dl Blood Type Blood Type Recheck O Positive Antibody Screen Crossmatch 05/01/20 05/01/20 05/01/20 Range/Units 17:21 22:37 22:37 WBC 25.97 H (4.8-10.8) K/uL RBC 3.35 L (4.2-5.4) M/uL Hgb 9.6 L (12.0-16.0) g/dL Hct 29.6 L (37-47) % MCV 88.4 (80-100) fL MCH 28.7 (25-34) pg MCHC 32.4 (32-36) g/dL RDW Std Deviation 51.9 H (36.4-46.3) fL RDW Coeff of Ruddy 16.2 H (11.5-14.5) % Plt Count 222 (130-400) K/uL MPV 10.0 (7.4-10.4) fL Immature Gran % (Auto) 0.5 % Neut % (Auto) 89.8 % Lymph % (Auto) 6.0 % [place] % (Auto) 3.7 % Eos % (Auto) 0.0 % Baso % (Auto) 0.0 % Neut # (Auto) 23.30 H (1.4-6.5) K/uL Lymph # (Auto) 1.55 (1.2-3.4) K/uL [place] # (Auto) 0.97 H (0.11-0.59) K/uL Eos # (Auto) 0.01 (0-0.5) K/uL Baso # (Auto) 0.01 (0-0.2) K/uL Immature Gran # (Auto) 0.13 H (0.00-0.02) K/uL PT (9.0-12.0) Seconds INR (0.9-1.1) APTT 28.2 (21.0-31.0) Seconds PTT Ratio 1.0 Fibrinogen 506 H 460 H (184-400) mg/dl POC Glucose (70-99) mg/dl Blood Type Blood Type Recheck Antibody Screen Crossmatch 05/01/20 Range/Units 22:37 WBC (4.8-10.8) K/uL RBC (4.2-5.4) M/uL Hgb (12.0-16.0) g/dL Hct (37-47) % MCV (80-100) fL MCH (25-34) pg MCHC (32-36) g/dL RDW Std Deviation (36.4-46.3) fL RDW Coeff of Ruddy (11.5-14.5) % Plt Count (130-400) K/uL MPV (7.4-10.4) fL Immature Gran % (Auto) % Neut % (Auto) % Lymph % (Auto) % [place] % (Auto) % Eos % (Auto) % Baso % (Auto) % Neut # (Auto) (1.4-6.5) K/uL Lymph # (Auto) (1.2-3.4) K/uL [place] # (Auto) (0.11-0.59) K/uL Eos # (Auto) (0-0.5) K/uL Baso # (Auto) (0-0.2) K/uL Immature Gran # (Auto) (0.00-0.02) K/uL PT 10.6 (9.0-12.0) Seconds INR 1.0 (0.9-1.1) APTT 28.2 (21.0-31.0) Seconds PTT Ratio 1.0 Fibrinogen (184-400) mg/dl POC Glucose (70-99) mg/dl Blood Type Blood Type Recheck Antibody Screen Crossmatch AP: 19 yo /p , and then hemorrhage, s/p IV oxytocin, IM Metherginex2, Hemabate x1, Tranexamic acid, Bakri baloon, 1 units of PRCBC O VSS Afebrile Bleeding minimal Plan to continue with IV Oxytocin and PO Methergine, 24 hours of Clindamycin Check CBC IN AM Continue to monitor closely Advance to regular diet in am if stable overnight Results & Data ([place]) Vital Signs (Past 12 Hours) Vital Signs Temp Pulse Resp BP Pulse Ox 05/02/20 00:06 96 H 100 07/21/20 00:01 99 H 109/66 100 07/20/20 23:56 95 H 98 07/20/20 23:41 93 H 98 07/20/20 23:36 94 H 99 07/20/20 23:31 92 H 99 07/20/20 23:26 94 H 100 07/20/20 23:21 90 99 07/20/20 23:16 93 H 99 07/20/20 23:11 98 H 99 07/20/20 23:06 100 H 99 07/20/20 23:01 94 H 98 07/20/20 23:00 96 H 18 116/67 07/20/20 22:56 100 H 99 07/20/20 22:51 97 H 98 07/20/20 22:46 93 H 97 07/20/20 22:41 93 H 98 07/20/20 22:36 98 H 98 07/20/20 22:31 97 H 99 07/20/20 22:30 97 H 121/68 07/20/20 22:26 95 H 98 07/20/20 22:21 95 H 99 07/20/20 22:16 94 H 99 07/20/20 22:11 99 H 98 07/20/20 22:06 102 H 96 07/20/20 22:00 36.6 C 95 H 18 120/73 07/20/20 21:36 96 H 97 07/20/20 21:31 94 H 97 07/20/20 21:30 96 H 123/60 07/20/20 21:26 101 H 98 07/20/20 21:21 101 H 98 07/20/20 21:16 94 H 98 07/20/20 21:11 97 H 96 07/20/20 21:06 99 H 97 07/20/20 21:01 103 H 98 07/20/20 21:00 98 H 124/63 07/20/20 20:56 98 H 98 07/20/20 20:51 102 H 99 07/20/20 20:46 100 H 97 07/20/20 20:41 103 H 98 07/20/20 20:36 100 H 99 07/20/20 20:31 106 H 97 07/20/20 20:30 37.1 C 99 H 20 123/58 L 07/20/20 20:26 99 H 95 07/20/20 20:21 102 H 97 07/20/20 20:16 101 H 97 20 20:11 101 H 97 05/01/20 20:08 100 H 109/60 05/01/20 20:06 100 H 98 05/01/20 20:01 101 H 100 05/01/20 20:00 101 H 20 107/58 L 05/01/20 19:56 102 H 99 05/01/20 19:51 101 H 97 05/01/20 19:46 102 H 98 05/01/20 19:45 102 H 107/59 L 05/01/20 19:41 100 H 97 05/01/20 19:38 36.9 C 100 H 20 107/58 L 98 05/01/20 19:36 103 H 97 05/01/20 19:31 105 H 96 05/01/20 19:30 103 H 20 109/58 L 05/01/20 19:26 105 H 97 05/01/20 19:21 106 H 98 05/01/20 19:16 109 H 97 05/01/20 19:15 106 H 109/55 L 05/01/20 19:11 108 H 95 05/01/20 19:08 37.2 C 104 H 20 111/55 L 96 05/01/20 19:06 115 H 98 05/01/20 19:02 20 05/01/20 19:01 106 H 98 05/01/20 19:00 107 H 102/55 L 05/01/20 18:56 104 H 96 05/01/20 18:53 37.2 C 104 H 20 105/66 98 05/01/20 18:51 109 H 99 05/01/20 18:46 108 H 97 05/01/20 18:45 102 H 20 102/57 L 05/01/20 18:41 105 H 97 05/01/20 18:36 108 H 95 05/01/20 18:35 37.1 C 104 H 20 107/58 L 95 05/01/20 18:31 106 H 96 05/01/20 18:30 103 H 20 107/58 L 05/01/20 18:26 103 H 97 05/01/20 18:21 105 H 99 05/01/20 18:16 104 H 98 05/01/20 18:15 104 H 100/55 L 05/01/20 18:14 36.9 C 20 05/01/20 18:11 103 H 87 L 05/01/20 18:06 112 H 100 05/01/20 18:01 132 H 100 05/01/20 18:00 94 H 20 102/59 L 05/01/20 17:56 112 H 100 05/01/20 17:51 100 H 100 05/01/20 17:50 98 H 96/54 L 05/01/20 17:48 108 H 95/52 L 05/01/20 17:46 110 H 103/52 L 100 05/01/20 17:44 118 H 100/51 L 84 L 05/01/20 17:42 115 H 100/53 L 05/01/20 17:41 111 H 100 05/01/20 17:40 108 H 99/56 L 05/01/20 17:38 111 H 94/58 L 05/01/20 17:36 117 H 93/50 L 98 05/01/20 17:34 114 H 97/65 L 05/01/20 17:32 108 H 97/59 L 05/01/20 17:31 112 H 100 05/01/20 17:30 107 H 96/54 L 81 L 05/01/20 17:28 104 H 101/56 L 05/01/20 17:26 102 H 98/53 L 100 05/01/20 17:24 103 H 98/53 L 05/01/20 17:22 104 H 97/55 L 05/01/20 17:21 106 H 100 05/01/20 17:20 108 H 100/57 L 05/01/20 17:16 99 H 71 L 05/01/20 17:11 110 H 78/49 L 100 05/01/20 17:09 109 H 68/39 L 05/01/20 17:07 121 H 63/32 L 05/01/20 17:06 132 H 100 05/01/20 17:03 112 H 63/29 L 05/01/20 17:01 130 H 100 05/01/20 16:59 127 H 77/38 L 05/01/20 16:56 120 H 100 05/01/20 16:51 113 H 100 05/01/20 16:46 113 H 98 05/01/20 16:41 104 H 98 05/01/20 16:39 111 H 112/53 L 0720 16:36 113 H 97 0720 16:31 111 H 97 20 16:26 112 H 97 20 16:21 109 H 98 20 16:16 158 H 100 20 16:15 105 H 132/60 0720 16:11 170 H 100 05/01/20 16:06 101 H 99 05/01/20 16:01 107 H 97 05/01/20 16:00 36.7 C 100 H 20 122/63 05/01/20 15:56 105 H 99 0720 15:52 101 H 79 L 05/01/20 15:51 105 H 99 05/01/20 15:46 96 H 97 05/01/20 15:45 100 H 114/54 L 05/01/20 15:41 111 H 99 05/01/20 15:36 99 H 99 05/01/20 15:31 102 H 98 05/01/20 15:30 100 H 20 114/58 L 05/01/20 15:26 97 H 97 20 15:21 92 H 98 20 15:16 98 H 111/52 L 98 05/01/20 15:11 99 H 98 05/01/20 15:06 103 H 98 05/01/20 15:01 100 H 98 05/01/20 15:00 36.6 C 98 H 20 111/54 L 05/01/20 14:56 98 H 98 05/01/20 14:51 97 H 98 05/01/20 14:46 101 H 98 05/01/20 14:45 89 109/53 L 20 14:41 107 H 98 05/01/20 14:36 107 H 98 20 14:31 95 H 97 20 14:30 20 05/01/20 14:29 89 101/52 L 05/01/20 14:26 98 H 97 05/01/20 14:21 102 H 97 05/01/20 14:16 101 H 106/56 L 97 05/01/20 14:11 97 H 97 05/01/20 14:06 94 H 98 05/01/20 14:01 105 H 97 05/01/20 14:00 20 05/01/20 13:59 103 H 98/54 L 05/01/20 13:56 105 H 98 05/01/20 13:51 104 H 98 05/01/20 13:46 111 H 98 05/01/20 13:45 96 H 107/57 L 05/01/20 13:41 90 99 05/01/20 13:36 95 H 97 05/01/20 13:31 101 H 98 05/01/20 13:30 20 05/01/20 13:29 102 H 98/54 L 05/01/20 13:26 99 H 96 05/01/20 13:21 101 H 98 05/01/20 13:16 86 97/53 L 95 05/01/20 13:11 87 96 05/01/20 13:06 107 H 99 05/01/20 13:01 111 H 98 05/01/20 13:00 36.5 C 104 H 20 113/58 L 05/01/20 12:56 101 H 95 05/01/20 12:51 103 H 95 05/01/20 12:46 104 H 96 05/01/20 12:44 106 H 100/54 L 05/01/20 12:41 102 H 95 05/01/20 12:36 105 H 96 05/01/20 12:31 103 H 95 05/01/20 12:30 20 05/01/20 12:29 104 H 104/54 L 05/01/20 12:26 105 H 96 05/01/20 12:21 94 H 97 05/01/20 12:16 97 H 96 05/01/20 12:14 98 H 96/55 L 05/01/20 12:11 99 H 95
[2020-05-02 06:10] LABS: Hematocrit (blood only) 22.6 % (37-47); Hemoglobin 7.3 g/dL (12.0-16.0); Mean Corpuscular Hgb Conc 32.3 g/dL (32-36); Mean Corpuscular Volume 86.6 fL (80-100); Mean Platelet Volume 10.4 fL (7.4-10.4); Platelet Count 200 K/uL (130-400); RDW Coefficient of Variation 16.3 % (11.5-14.5); RDW Standard Deviation 51.6 fL (36.4-46.3); Red Blood Count 2.61 M/uL (4.2-5.4); White Blood Count 19.96 K/uL (4.8-10.8)
[2020-05-02] MEDS: OXYTOCIN 20 UNITS in LACTATED RINGER'S 1,000 ML IV SCH (06:14)
--- NOTE | 2020-05-02 06:35 | Anesthesia Procedure Note ---
Date of Service May 02, 2020 Anesthesia Post Epidural Note Vital Signs Vital Signs: Temp Pulse Resp BP Pulse Ox 36.7 C 93 H 16 102/56 L 96 05/02/20 04:00 05/02/20 06:29 05/02/20 06:00 05/02/20 06:01 05/02/20 06:29 Pain Intensity Abdomen: Pain Intensity: 0 Right Head: Pain Intensity: 4 Notes Mental Status: alert / awake / arousable and participated in evaluation Nausea / Vomiting: adequately controlled Pain: adequately controlled Airway Patency, RR, SpO2: stable & adequate BP & HR: stable & adequate Hydration State: stable & adequate Neuraxial Anesthesia: was administered and sensory block is resolving Anesthetic Complications: no major complications apparent and Pt Satisfied with anesthetic care Epidural: Removed without complications and With tip intact Notes: Epidural site clean, dry and intact. No signs of edema, erythema or bruising at insertion site. Pt instructed to request anesthesia if she has residual lower extremity numbness or if she develops lower extremity pain or weakness, back pain or headache.
[2020-05-02] MEDS ORDERED: SODIUM CHLORIDE 0.9% 250 ML IV PRN (06:41)
--- NOTE | 2020-05-02 06:46 | Obstetrical Progress Note ---
Date of Service May 02, 2020 Assessment & Plan Admission and Anticipated Discharge Date Admission Date: May 01, 2020 Subjective Patient is seen and examined. She feels well, no complaints. OOB to commode without dizziness Tolerating clear diet with out N&V Bleeding is minimal No fever/ chills/ CP/ SOB/ N&V/ Leg pain Bottle feeding without problems Vital Signs Temp Pulse Resp BP Pulse Ox 05/02/20 06:39 102 H 96 05/02/20 06:34 95 H 97 05/02/20 06:29 93 H 96 05/02/20 06:24 86 96 05/02/20 06:19 89 97 05/02/20 06:14 87 97 05/02/20 06:09 90 97 05/02/20 06:04 94 H 97 05/02/20 06:01 88 102/56 L 05/02/20 06:00 16 05/02/20 05:59 90 96 05/02/20 05:54 90 98 05/02/20 05:49 95 H 97 05/02/20 05:44 91 H 97 05/02/20 05:39 92 H 97 05/02/20 05:34 92 H 97 05/02/20 05:29 94 H 97 05/02/20 05:24 90 97 05/02/20 05:19 91 H 97 05/02/20 05:14 89 96 05/02/20 05:09 98 H 98 05/02/20 05:04 90 93/61 L 98 05/02/20 05:00 18 05/02/20 04:59 91 H 96 05/02/20 04:54 91 H 95 05/02/20 04:49 97 H 95 05/02/20 04:44 93 H 96 05/02/20 04:39 88 95 05/02/20 04:34 87 95 05/02/20 04:29 95 H 96 05/02/20 04:24 97 H 96 05/02/20 04:19 111 H 96 05/02/20 04:14 108 H 96 05/02/20 04:09 107 H 97 05/02/20 04:04 99 H 97 05/02/20 04:01 94 H 119/58 L 05/02/20 04:00 36.7 C 18 05/02/20 03:59 109 H 97 05/02/20 03:54 96 H 97 05/02/20 03:49 99 H 97 05/02/20 03:44 103 H 97 05/02/20 03:39 105 H 97 05/02/20 03:34 105 H 97 05/02/20 03:16 97 H 97 05/02/20 03:11 101 H 97 05/02/20 03:06 97 H 97 05/02/20 03:01 114 H 102/58 L 97 05/02/20 03:00 36.7 C 16 05/02/20 02:56 105 H 96 05/02/20 02:51 97 H 94 05/02/20 02:46 97 H 94 05/02/20 02:41 99 H 95 05/02/20 02:36 100 H 94 05/02/20 02:31 99 H 94 05/02/20 02:26 99 H 93 05/02/20 02:21 97 H 95 05/02/20 02:16 97 H 95 05/02/20 02:11 100 H 94 05/02/20 02:06 98 H 94 05/02/20 02:01 99 H 108/52 L 95 05/02/20 02:00 05/02/20 01:56 99 H 94 05/02/20 01:51 98 H 94 05/02/20 01:46 98 H 95 05/02/20 01:41 103 H 94 05/02/20 01:36 99 H 94 05/02/20 01:31 100 H 94 05/02/20 01:26 101 H 94 05/02/20 01:21 98 H 94 05/02/20 01:16 99 H 94 05/02/20 01:11 98 H 95 05/02/20 01:06 97 H 95 05/02/20 01:01 94 H 118/54 L 97 05/02/20 01:00 05/02/20 00:56 95 H 97 05/02/20 00:51 100 H 96 05/02/20 00:46 96 H 97 05/02/20 00:41 97 H 97 05/02/20 00:36 97 H 97 05/02/20 00:31 99 H 98 05/02/20 00:26 96 H 100 05/02/20 00:21 94 H 100 05/02/20 00:16 94 H 100 07/21/20 00:11 96 H 100 07/21/20 00:06 96 H 100 07/21/20 00:01 99 H 109/66 100 07/21/20 00:00 36.7 C 18 07/20/20 23:56 95 H 98 07/20/20 23:41 93 H 98 07/20/20 23:36 94 H 99 07/20/20 23:31 92 H 99 07/20/20 23:26 94 H 100 07/20/20 23:21 90 99 07/20/20 23:16 93 H 99 07/20/20 23:11 98 H 99 07/20/20 23:06 100 H 99 07/20/20 23:01 94 H 98 07/20/20 23:00 96 H 18 116/67 07/20/20 22:56 100 H 99 07/20/20 22:51 97 H 98 07/20/20 22:46 93 H 97 07/20/20 22:41 93 H 98 07/20/20 22:36 98 H 98 07/20/20 22:31 97 H 99 07/20/20 22:30 97 H 121/68 07/20/20 22:26 95 H 98 07/20/20 22:21 95 H 99 07/20/20 22:16 94 H 99 07/20/20 22:11 99 H 98 07/20/20 22:06 102 H 96 07/20/20 22:00 36.6 C 95 H 18 120/73 07/20/20 21:36 96 H 97 07/20/20 21:31 94 H 97 07/20/20 21:30 96 H 123/60 07/20/20 21:26 101 H 98 07/20/20 21:21 101 H 98 07/20/20 21:16 94 H 98 07/20/20 21:11 97 H 96 07/20/20 21:06 99 H 97 07/20/20 21:01 103 H 98 07/20/20 21:00 98 H 124/63 07/20/20 20:56 98 H 98 07/20/20 20:51 102 H 99 07/20/20 20:46 100 H 97 07/20/20 20:41 103 H 98 07/20/20 20:36 100 H 99 07/20/20 20:31 106 H 97 07/20/20 20:30 37.1 C 99 H 20 123/58 L 05/01/20 20:26 99 H 95 05/01/20 20:21 102 H 97 05/01/20 20:16 101 H 97 05/01/20 20:11 101 H 97 05/01/20 20:08 100 H 109/60 05/01/20 20:06 100 H 98 05/01/20 20:01 101 H 100 05/01/20 20:00 101 H 20 107/58 L 05/01/20 19:56 102 H 99 05/01/20 19:51 101 H 97 05/01/20 19:46 102 H 98 05/01/20 19:45 102 H 107/59 L 05/01/20 19:41 100 H 97 05/01/20 19:38 36.9 C 100 H 20 107/58 L 98 05/01/20 19:36 103 H 97 05/01/20 19:31 105 H 96 05/01/20 19:30 103 H 20 109/58 L 05/01/20 19:26 105 H 97 05/01/20 19:21 106 H 98 05/01/20 19:16 109 H 97 05/01/20 19:15 106 H 109/55 L 05/01/20 19:11 108 H 95 05/01/20 19:08 37.2 C 104 H 20 111/55 L 96 05/01/20 19:06 115 H 98 05/01/20 19:02 20 05/01/20 19:01 106 H 98 05/01/20 19:00 107 H 102/55 L 05/01/20 18:56 104 H 96 05/01/20 18:53 37.2 C 104 H 20 105/66 98 05/01/20 18:51 109 H 99 05/01/20 18:46 108 H 97 05/01/20 18:45 102 H 20 102/57 L Lab Results 05/01/20 05/01/20 05/01/20 Range/Units 05:11 05:25 05:25 WBC 16.34 H (4.8-10.8) K/uL RBC 3.66 L (4.2-5.4) M/uL Hgb 10.7 L (12.0-16.0) g/dL Hct 33.5 L (37-47) % MCV 91.5 (80-100) fL MCH 29.2 (25-34) pg MCHC 31.9 L (32-36) g/dL RDW Std Deviation 51.1 H (36.4-46.3) fL RDW Coeff of Ruddy 15.3 H (11.5-14.5) % Plt Count 259 (130-400) K/uL MPV 10.0 (7.4-10.4) fL Immature Gran % (Auto) % Neut % (Auto) % Lymph % (Auto) % [place] % (Auto) % Eos % (Auto) % Baso % (Auto) % Neut # (Auto) (1.4-6.5) K/uL Lymph # (Auto) (1.2-3.4) K/uL [place] # (Auto) (0.11-0.59) K/uL Eos # (Auto) (0-0.5) K/uL Baso # (Auto) (0-0.2) K/uL Immature Gran # (Auto) (0.00-0.02) K/uL PT (9.0-12.0) Seconds INR (0.9-1.1) APTT (21.0-31.0) Seconds PTT Ratio Fibrinogen (184-400) mg/dl POC Glucose 123 H (70-99) mg/dl Blood Type O Positive Blood Type Recheck Antibody Screen NEGATIVE Crossmatch See Detail 05/01/20 05/01/20 05/01/20 Range/Units 07:04 09:03 11:03 WBC (4.8-10.8) K/uL RBC (4.2-5.4) M/uL Hgb (12.0-16.0) g/dL Hct (37-47) % MCV (80-100) fL MCH (25-34) pg MCHC (32-36) g/dL RDW Std Deviation (36.4-46.3) fL RDW Coeff of Ruddy (11.5-14.5) % Plt Count (130-400) K/uL MPV (7.4-10.4) fL Immature Gran % (Auto) % Neut % (Auto) % Lymph % (Auto) % [place] % (Auto) % Eos % (Auto) % Baso % (Auto) % Neut # (Auto) (1.4-6.5) K/uL Lymph # (Auto) (1.2-3.4) K/uL [place] # (Auto) (0.11-0.59) K/uL Eos # (Auto) (0-0.5) K/uL Baso # (Auto) (0-0.2) K/uL Immature Gran # (Auto) (0.00-0.02) K/uL PT (9.0-12.0) Seconds INR (0.9-1.1) APTT (21.0-31.0) Seconds PTT Ratio Fibrinogen (184-400) mg/dl POC Glucose 91 85 84 (70-99) mg/dl Blood Type Blood Type Recheck Antibody Screen Crossmatch 05/01/20 05/01/20 05/01/20 Range/Units 13:03 14:07 15:03 WBC (4.8-10.8) K/uL RBC (4.2-5.4) M/uL Hgb (12.0-16.0) g/dL Hct (37-47) % MCV (80-100) fL MCH (25-34) pg MCHC (32-36) g/dL RDW Std Deviation (36.4-46.3) fL RDW Coeff of Ruddy (11.5-14.5) % Plt Count (130-400) K/uL MPV (7.4-10.4) fL Immature Gran % (Auto) % Neut % (Auto) % Lymph % (Auto) % [place] % (Auto) % Eos % (Auto) % Baso % (Auto) % Neut # (Auto) (1.4-6.5) K/uL Lymph # (Auto) (1.2-3.4) K/uL [place] # (Auto) (0.11-0.59) K/uL Eos # (Auto) (0-0.5) K/uL Baso # (Auto) (0-0.2) K/uL Immature Gran # (Auto) (0.00-0.02) K/uL PT (9.0-12.0) Seconds INR (0.9-1.1) APTT (21.0-31.0) Seconds PTT Ratio Fibrinogen (184-400) mg/dl POC Glucose 77 76 77 (70-99) mg/dl Blood Type Blood Type Recheck Antibody Screen Crossmatch 05/01/20 05/01/20 05/01/20 Range/Units 16:00 17:20 17:21 WBC (4.8-10.8) K/uL RBC (4.2-5.4) M/uL Hgb 9.4 L (12.0-16.0) g/dL Hct 29.7 L (37-47) % MCV (80-100) fL MCH (25-34) pg MCHC (32-36) g/dL RDW Std Deviation (36.4-46.3) fL RDW Coeff of Ruddy (11.5-14.5) % Plt Count (130-400) K/uL MPV (7.4-10.4) fL Immature Gran % (Auto) % Neut % (Auto) % Lymph % (Auto) % [place] % (Auto) % Eos % (Auto) % Baso % (Auto) % Neut # (Auto) (1.4-6.5) K/uL Lymph # (Auto) (1.2-3.4) K/uL [place] # (Auto) (0.11-0.59) K/uL Eos # (Auto) (0-0.5) K/uL Baso # (Auto) (0-0.2) K/uL Immature Gran # (Auto) (0.00-0.02) K/uL PT (9.0-12.0) Seconds INR (0.9-1.1) APTT (21.0-31.0) Seconds PTT Ratio Fibrinogen (184-400) mg/dl POC Glucose 80 (70-99) mg/dl Blood Type Blood Type Recheck O Positive Antibody Screen Crossmatch 05/01/20 05/01/20 05/01/20 Range/Units 17:21 22:37 22:37 WBC 25.97 H (4.8-10.8) K/uL RBC 3.35 L (4.2-5.4) M/uL Hgb 9.6 L (12.0-16.0) g/dL Hct 29.6 L (37-47) % MCV 88.4 (80-100) fL MCH 28.7 (25-34) pg MCHC 32.4 (32-36) g/dL RDW Std Deviation 51.9 H (36.4-46.3) fL RDW Coeff of Ruddy 16.2 H (11.5-14.5) % Plt Count 222 (130-400) K/uL MPV 10.0 (7.4-10.4) fL Immature Gran % (Auto) 0.5 % Neut % (Auto) 89.8 % Lymph % (Auto) 6.0 % [place] % (Auto) 3.7 % Eos % (Auto) 0.0 % Baso % (Auto) 0.0 % Neut # (Auto) 23.30 H (1.4-6.5) K/uL Lymph # (Auto) 1.55 (1.2-3.4) K/uL [place] # (Auto) 0.97 H (0.11-0.59) K/uL Eos # (Auto) 0.01 (0-0.5) K/uL Baso # (Auto) 0.01 (0-0.2) K/uL Immature Gran # (Auto) 0.13 H (0.00-0.02) K/uL PT (9.0-12.0) Seconds INR (0.9-1.1) APTT 28.2 (21.0-31.0) Seconds PTT Ratio 1.0 Fibrinogen 506 H 460 H (184-400) mg/dl POC Glucose (70-99) mg/dl Blood Type Blood Type Recheck Antibody Screen Crossmatch 05/01/20 05/02/20 Range/Units 22:37 05:21 WBC 19.96 H (4.8-10.8) K/uL RBC 2.61 L (4.2-5.4) M/uL Hgb 7.3 L (12.0-16.0) g/dL Hct 22.6 L (37-47) % MCV 86.6 (80-100) fL MCH 28.0 (25-34) pg MCHC 32.3 (32-36) g/dL RDW Std Deviation 51.6 H (36.4-46.3) fL RDW Coeff of Ruddy 16.3 H (11.5-14.5) % Plt Count 200 (130-400) K/uL MPV 10.4 (7.4-10.4) fL Immature Gran % (Auto) % Neut % (Auto) % Lymph % (Auto) % [place] % (Auto) % Eos % (Auto) % Baso % (Auto) % Neut # (Auto) (1.4-6.5) K/uL Lymph # (Auto) (1.2-3.4) K/uL [place] # (Auto) (0.11-0.59) K/uL Eos # (Auto) (0-0.5) K/uL Baso # (Auto) (0-0.2) K/uL Immature Gran # (Auto) (0.00-0.02) K/uL PT 10.6 (9.0-12.0) Seconds INR 1.0 (0.9-1.1) APTT 28.2 (21.0-31.0) Seconds PTT Ratio 1.0 Fibrinogen (184-400) mg/dl POC Glucose (70-99) mg/dl Blood Type Blood Type Recheck Antibody Screen Crossmatch Intake & Output 05/01/20 05/01/20 05/02/20 14:59 22:59 06:59 Intake Total 2134.200 / 4774.317 1582.117 / 4774.317 1058.000 / 4774.317 Output Total 1425 / 3832 825 / 3832 1582 / 3832 Balance 709.200 / 942.317 757.117 / 942.317 -524.000 / 942.317 Weight 112.037 kg Intake: IV 2134.200 / 4464.317 1272.117 / 4464.317 1058.000 / 4464.317 Cleocin 900 mg In D5w 50 ml @ 56 / 56 112 mls/hr IV Q8H ROZINA Rx#: [id number] Lr 1,000 ml @ 125 mls/hr IV . 2074.367 / 2830.617 756.250 / 2830.617 Q8H PRN Rx#:[id number] Pitocin 20 Units In Lr 1,000 ml 1002.000 / 1002.000 @ 125 mls/hr IV .Q8H1M ROZINA Rx# :[id number] PITOCIN 30 units In 500 ml @ 59.833 / 575.700 515.867 / 575.700 125 mls/hr IV .Q4H PRN Rx#: [id number] Intake (Blood Product) Amt 0 / 0 Packed Cells, Leukoreduced 0 / 0 Unit [id number] Other 310 / 310 Output: Urine 900 / 900 Emesis 150 / 150 Urine Amount (Catheter) 525 / 2700 650 / 2700 1525 / 2700 Crane/Indwelling 525 / 2700 650 / 2700 1525 / 2700 Drain Output #1 # Bowel Movements Other: Other Intake Source prbc PE: General: Alert, orientedx3, NAD CVS S1S2 RRR Lungs: CTAB Abd: soft, NT, fundus firm, below Umbilicus, -2 Perineum intact, No bleeding, Bakri tube has minimal dark blood, small in bag, epmtied 81 ml overnight UOP adequate Ext; NT, no edema AP: 19 yo s/p , ppd# 1, s/p hemorrhage, s/p IV oxytocin, IM Metherginex2, Hemabate x1, Tranexamic acid, Bakri baloon, 1 units of PRCBC VSS Afebrile doing well UOP good H&H with drop, most likely reflecting blood loss now, discussed oral iron therapy vs transfuse another unit, she was not able to use iron due to GI side effects during her , prefers transfusion Will transfuse another unit and recheck CBC in afternoon Plan for Bakri for 24 hours with AB All questions were answered Continue to monitor closely Signed toDr. Zeger Results & Data ([facility]) Vital Signs (Past 12 Hours) Vital Signs Temp Pulse Resp BP Pulse Ox 05/02/20 06:39 102 H 96 05/02/20 06:34 95 H 97 05/02/20 06:29 93 H 96 05/02/20 06:24 86 96 05/02/20 06:19 89 97 05/02/20 06:14 87 97 05/02/20 06:09 90 97 05/02/20 06:04 94 H 97 05/02/20 06:01 88 102/56 L 05/02/20 06:00 16 05/02/20 05:59 90 96 05/02/20 05:54 90 98 05/02/20 05:49 95 H 97 05/02/20 05:44 91 H 97 05/02/20 05:39 92 H 97 05/02/20 05:34 92 H 97 05/02/20 05:29 94 H 97 05/02/20 05:24 90 97 05/02/20 05:19 91 H 97 05/02/20 05:14 89 96 05/02/20 05:09 98 H 98 05/02/20 05:04 90 93/61 L 98 05/02/20 05:00 18 05/02/20 04:59 91 H 96 05/02/20 04:54 91 H 95 05/02/20 04:49 97 H 95 05/02/20 04:44 93 H 96 05/02/20 04:39 88 95 05/02/20 04:34 87 95 05/02/20 04:29 95 H 96 05/02/20 04:24 97 H 96 05/02/20 04:19 111 H 96 05/02/20 04:14 108 H 96 05/02/20 04:09 107 H 97 05/02/20 04:04 99 H 97 05/02/20 04:01 94 H 119/58 L 05/02/20 04:00 36.7 C 18 05/02/20 03:59 109 H 97 05/02/20 03:54 96 H 97 05/02/20 03:49 99 H 97 05/02/20 03:44 103 H 97 05/02/20 03:39 105 H 97 05/02/20 03:34 105 H 97 05/02/20 03:16 97 H 97 05/02/20 03:11 101 H 97 05/02/20 03:06 97 H 97 05/02/20 03:01 114 H 102/58 L 97 05/02/20 03:00 36.7 C 16 05/02/20 02:56 105 H 96 05/02/20 02:51 97 H 94 05/02/20 02:46 97 H 94 05/02/20 02:41 99 H 95 05/02/20 02:36 100 H 94 05/02/20 02:31 99 H 94 05/02/20 02:26 99 H 93 05/02/20 02:21 97 H 95 05/02/20 02:16 97 H 95 07/21/20 02:11 100 H 94 05/02/20 02:06 98 H 94 05/02/20 02:01 99 H 108/52 L 95 05/02/20 02:00 16 05/02/20 01:56 99 H 94 05/02/20 01:51 98 H 94 05/02/20 01:46 98 H 95 05/02/20 01:41 103 H 94 05/02/20 01:36 99 H 94 05/02/20 01:31 100 H 94 05/02/20 01:26 101 H 94 05/02/20 01:21 98 H 94 05/02/20 01:16 99 H 94 05/02/20 01:11 98 H 95 05/02/20 01:06 97 H 95 05/02/20 01:01 94 H 118/54 L 97 05/02/20 01:00 16 05/02/20 00:56 95 H 97 05/02/20 00:51 100 H 96 05/02/20 00:46 96 H 97 05/02/20 00:41 97 H 97 05/02/20 00:36 97 H 97 05/02/20 00:31 99 H 98 05/02/20 00:26 96 H 100 05/02/20 00:21 94 H 100 05/02/20 00:16 94 H 100 05/02/20 00:11 96 H 100 05/02/20 00:06 96 H 100 05/02/20 00:01 99 H 109/66 100 05/02/20 00:00 36.7 C 18 05/01/20 23:56 95 H 98 05/01/20 23:41 93 H 98 05/01/20 23:36 94 H 99 20 23:31 92 H 99 05/01/20 23:26 94 H 100 20 23:21 90 99 20 23:16 93 H 99 05/01/20 23:11 98 H 99 05/01/20 23:06 100 H 99 05/01/20 23:01 94 H 98 05/01/20 23:00 96 H 18 116/67 05/01/20 22:56 100 H 99 05/01/20 22:51 97 H 98 07 22:46 93 H 97 05/01/20 22:41 93 H 98 07/20/20 22:36 98 H 98 07/20/20 22:31 97 H 99 07/20/20 22:30 97 H 121/68 07/20/20 22:26 95 H 98 07/20/20 22:21 95 H 99 07/20/20 22:16 94 H 99 07/20/20 22:11 99 H 98 07/20/20 22:06 102 H 96 07/20/20 22:00 36.6 C 95 H 18 120/73 07/20/20 21:36 96 H 97 07/20/20 21:31 94 H 97 07/20/20 21:30 96 H 123/60 07/20/20 21:26 101 H 98 07/20/20 21:21 101 H 98 07/20/20 21:16 94 H 98 07/20/20 21:11 97 H 96 07/20/20 21:06 99 H 97 07/20/20 21:01 103 H 98 07/20/20 21:00 98 H 124/63 07/20/20 20:56 98 H 98 07/20/20 20:51 102 H 99 07/20/20 20:46 100 H 97 07/20/20 20:41 103 H 98 07/20/20 20:36 100 H 99 07/20/20 20:31 106 H 97 07/20/20 20:30 37.1 C 99 H 20 123/58 L 07/20/20 20:26 99 H 95 07/20/20 20:21 102 H 97 07/20/20 20:16 101 H 97 07/20/20 20:11 101 H 97 07/20/20 20:08 100 H 109/60 07/20/20 20:06 100 H 98 07/20/20 20:01 101 H 100 07/20/20 20:00 101 H 20 107/58 L 07/20/20 19:56 102 H 99 07/20/20 19:51 101 H 97 07/20/20 19:46 102 H 98 07/20/20 19:45 102 H 107/59 L 07/20/20 19:41 100 H 97 07/20/20 19:38 36.9 C 100 H 20 107/58 L 98 07/20/20 19:36 103 H 97 07/20/20 19:31 105 H 96 07/20/20 19:30 103 H 20 109/58 L 05/01/20 19:26 105 H 97 05/01/20 19:21 106 H 98 05/01/20 19:16 109 H 97 05/01/20 19:15 106 H 109/55 L 05/01/20 19:11 108 H 95 05/01/20 19:08 37.2 C 104 H 20 111/55 L 96 05/01/20 19:06 115 H 98 05/01/20 19:02 20 05/01/20 19:01 106 H 98 05/01/20 19:00 107 H 102/55 L 05/01/20 18:56 104 H 96 05/01/20 18:53 37.2 C 104 H 20 105/66 98 05/01/20 18:51 109 H 99 05/01/20 18:46 108 H 97 05/01/20 18:45 102 H 20 102/57 L
[2020-05-02] MEDS: DOCUSATE SODIUM 100 MG CAP PO SCH ×2 (07:53→23:02)
[2020-05-02] MEDS: PRENATAL VITAMIN 1 TAB PO SCH (07:54)
[2020-05-02] MEDS: FERROUS SULFATE 325 MG TAB PO SCH (07:54)
[2020-05-02] MEDS: FLUOXETINE HCL 20 MG CAP PO SCH (07:57)
--- NOTE | 2020-05-02 11:08 | Obstetrical Progress Note ---
Date of Service May 02, 2020 Assessment & Plan Admission and Anticipated Discharge Date Admission Date: May 01, 2020 Subjective PPD#1 stable no further bleeding fundus firm Abdomen soft 100 ml. fluid removed from Bakri will check H/H at noon Results & Data ([facility]) Vital Signs (Past 12 Hours) Vital Signs Temp Pulse Resp BP Pulse Ox 05/02/20 11:04 101 H 97 05/02/20 11:03 100 H 118/57 L 05/02/20 10:59 104 H 97 05/02/20 10:54 99 H 97 05/02/20 10:49 100 H 97 05/02/20 10:44 99 H 96 05/02/20 10:39 103 H 96 05/02/20 10:34 104 H 97 05/02/20 10:29 95 H 95 05/02/20 10:24 101 H 97 05/02/20 10:19 108 H 96 05/02/20 10:14 108 H 96 05/02/20 10:09 109 H 97 05/02/20 10:04 100 H 96 05/02/20 10:03 98 H 20 109/55 L 05/02/20 09:59 99 H 96 05/02/20 09:54 96 H 95 05/02/20 09:49 97 H 96 05/02/20 09:44 95 H 96 05/02/20 09:39 96 H 96 05/02/20 09:34 95 H 95 05/02/20 09:29 96 H 96 05/02/20 09:24 102 H 95 05/02/20 09:19 96 H 96 05/02/20 09:14 96 H 96 05/02/20 09:09 96 H 95 05/02/20 09:05 100 H 112/58 L 05/02/20 09:04 100 H 97 05/02/20 09:03 36.5 C 99 H 20 112/58 L 97 05/02/20 08:59 99 H 96 05/02/20 08:54 100 H 98 05/02/20 08:49 101 H 98 05/02/20 08:44 100 H 97 05/02/20 08:39 103 H 96 05/02/20 08:34 105 H 97 05/02/20 08:29 107 H 97 05/02/20 08:24 108 H 97 05/02/20 08:20 36.5 C 105 H 20 118/61 97 05/02/20 08:19 101 H 97 05/02/20 08:14 102 H 97 05/02/20 08:09 105 H 97 05/02/20 08:04 106 H 97 05/02/20 07:59 109 H 97 05/02/20 07:54 106 H 97 05/02/20 07:52 106 H 102/57 L 05/02/20 07:50 36.9 C 99 H 18 102/57 L 97 05/02/20 07:49 98 H 97 05/02/20 07:44 93 H 96 05/02/20 07:39 96 H 96 05/02/20 07:35 37 C 95 H 20 101/59 L 96 05/02/20 07:34 37 C 95 H 20 101/59 L 96 05/02/20 07:29 93 H 96 05/02/20 07:24 98 H 96 05/02/20 07:19 36.9 C 94 H 20 111/59 L 96 05/02/20 07:14 95 H 97 05/02/20 07:09 91 H 96 05/02/20 07:04 93 H 97 05/02/20 07:01 92 H 110/55 L 05/02/20 06:59 94 H 98 05/02/20 06:54 100 H 98 05/02/20 06:49 95 H 96 05/02/20 06:44 95 H 97 05/02/20 06:39 102 H 96 05/02/20 06:34 95 H 97 05/02/20 06:29 93 H 96 05/02/20 06:24 86 96 05/02/20 06:19 89 97 05/02/20 06:14 87 97 05/02/20 06:09 90 97 05/02/20 06:04 94 H 97 05/02/20 06:01 88 102/56 L 05/02/20 06:00 16 05/02/20 05:59 90 96 05/02/20 05:54 90 98 05/02/20 05:49 95 H 97 05/02/20 05:44 91 H 97 05/02/20 05:39 92 H 97 05/02/20 05:34 92 H 97 05/02/20 05:29 94 H 97 05/02/20 05:24 90 97 05/02/20 05:19 91 H 97 05/02/20 05:14 89 96 05/02/20 05:09 98 H 98 05/02/20 05:04 90 93/61 L 98 05/02/20 05:00 18 05/02/20 04:59 91 H 96 05/02/20 04:54 91 H 95 05/02/20 04:49 97 H 95 05/02/20 04:44 93 H 96 05/02/20 04:39 88 95 05/02/20 04:34 87 95 05/02/20 04:29 95 H 96 05/02/20 04:24 97 H 96 05/02/20 04:19 111 H 96 05/02/20 04:14 108 H 96 05/02/20 04:09 107 H 97 05/02/20 04:04 99 H 97 05/02/20 04:01 94 H 119/58 L 05/02/20 04:00 36.7 C 18 05/02/20 03:59 109 H 97 05/02/20 03:54 96 H 97 05/02/20 03:49 99 H 97 05/02/20 03:44 103 H 97 05/02/20 03:39 105 H 97 05/02/20 03:34 105 H 97 05/02/20 03:16 97 H 97 05/02/20 03:11 101 H 97 05/02/20 03:06 97 H 97 05/02/20 03:01 114 H 102/58 L 97 05/02/20 03:00 36.7 C 16 05/02/20 02:56 105 H 96 05/02/20 02:51 97 H 94 05/02/20 02:46 97 H 94 05/02/20 02:41 99 H 95 05/02/20 02:36 100 H 94 05/02/20 02:31 99 H 94 05/02/20 02:26 99 H 93 05/02/20 02:21 97 H 95 05/02/20 02:16 97 H 95 05/02/20 02:11 100 H 94 05/02/20 02:06 98 H 94 05/02/20 02:01 99 H 108/52 L 95 05/02/20 02:00 16 05/02/20 01:56 99 H 94 05/02/20 01:51 98 H 94 05/02/20 01:46 98 H 95 05/02/20 01:41 103 H 94 05/02/20 01:36 99 H 94 05/02/20 01:31 100 H 94 05/02/20 01:26 101 H 94 05/02/20 01:21 98 H 94 05/02/20 01:16 99 H 94 05/02/20 01:11 98 H 95 05/02/20 01:06 97 H 95 05/02/20 01:01 94 H 118/54 L 97 05/02/20 01:00 16 05/02/20 00:56 95 H 97 05/02/20 00:51 100 H 96 05/02/20 00:46 96 H 97 05/02/20 00:41 97 H 97 05/02/20 00:36 97 H 97 05/02/20 00:31 99 H 98 05/02/20 00:26 96 H 100 05/02/20 00:21 94 H 100 05/02/20 00:16 94 H 100 05/02/20 00:11 96 H 100 05/02/20 00:06 96 H 100 05/02/20 00:01 99 H 109/66 100 05/02/20 00:00 36.7 C 18 05/01/20 23:56 95 H 98 05/01/20 23:41 93 H 98 05/01/20 23:36 94 H 99 05/01/20 23:31 92 H 99 05/01/20 23:26 94 H 100 05/01/20 23:21 90 99 05/01/20 23:16 93 H 99 05/01/20 23:11 98 H 99 Laboratory Results Laboratory Results - last 72 hr 05/01/20 05/01/20 05/01/20 05:11 05:25 05:25 WBC 16.34 H RBC 3.66 L Hgb 10.7 L Hct 33.5 L MCV 91.5 MCH 29.2 MCHC 31.9 L RDW Std Deviation 51.1 H RDW Coeff of Ruddy 15.3 H Plt Count 259 MPV 10.0 Immature Gran % (Auto) Neut % (Auto) Lymph % (Auto) [place] % (Auto) Eos % (Auto) Baso % (Auto) Neut # (Auto) Lymph # (Auto) [place] # (Auto) Eos # (Auto) Baso # (Auto) Immature Gran # (Auto) PT INR APTT PTT Ratio Fibrinogen POC Glucose 123 H Blood Type O Positive Blood Type Recheck Antibody Screen NEGATIVE Crossmatch See Detail 05/01/20 05/01/20 05/01/20 07:04 09:03 11:03 WBC RBC Hgb Hct MCV MCH MCHC RDW Std Deviation RDW Coeff of Ruddy Plt Count MPV Immature Gran % (Auto) Neut % (Auto) Lymph % (Auto) [place] % (Auto) Eos % (Auto) Baso % (Auto) Neut # (Auto) Lymph # (Auto) [place] # (Auto) Eos # (Auto) Baso # (Auto) Immature Gran # (Auto) PT INR APTT PTT Ratio Fibrinogen POC Glucose 91 85 84 Blood Type Blood Type Recheck Antibody Screen Crossmatch 05/01/20 05/01/20 05/01/20 13:03 14:07 15:03 WBC RBC Hgb Hct MCV MCH MCHC RDW Std Deviation RDW Coeff of Ruddy Plt Count MPV Immature Gran % (Auto) Neut % (Auto) Lymph % (Auto) [place] % (Auto) Eos % (Auto) Baso % (Auto) Neut # (Auto) Lymph # (Auto) [place] # (Auto) Eos # (Auto) Baso # (Auto) Immature Gran # (Auto) PT INR APTT PTT Ratio Fibrinogen POC Glucose 77 76 77 Blood Type Blood Type Recheck Antibody Screen Crossmatch 05/01/20 05/01/20 05/01/20 16:00 17:20 17:21 WBC RBC Hgb 9.4 L Hct 29.7 L MCV MCH MCHC RDW Std Deviation RDW Coeff of Ruddy Plt Count MPV Immature Gran % (Auto) Neut % (Auto) Lymph % (Auto) [place] % (Auto) Eos % (Auto) Baso % (Auto) Neut # (Auto) Lymph # (Auto) [place] # (Auto) Eos # (Auto) Baso # (Auto) Immature Gran # (Auto) PT INR APTT PTT Ratio Fibrinogen POC Glucose 80 Blood Type Blood Type Recheck O Positive Antibody Screen Crossmatch 05/01/20 05/01/20 05/01/20 17:21 22:37 22:37 WBC 25.97 H RBC 3.35 L Hgb 9.6 L Hct 29.6 L MCV 88.4 MCH 28.7 MCHC 32.4 RDW Std Deviation 51.9 H RDW Coeff of Ruddy 16.2 H Plt Count 222 MPV 10.0 Immature Gran % (Auto) 0.5 Neut % (Auto) 89.8 Lymph % (Auto) 6.0 [place] % (Auto) 3.7 Eos % (Auto) 0.0 Baso % (Auto) 0.0 Neut # (Auto) 23.30 H Lymph # (Auto) 1.55 [place] # (Auto) 0.97 H Eos # (Auto) 0.01 Baso # (Auto) 0.01 Immature Gran # (Auto) 0.13 H PT INR APTT 28.2 PTT Ratio 1.0 Fibrinogen 506 H 460 H POC Glucose Blood Type Blood Type Recheck Antibody Screen Crossmatch 05/01/20 05/02/20 22:37 05:21 WBC 19.96 H RBC 2.61 L Hgb 7.3 L Hct 22.6 L MCV 86.6 MCH 28.0 MCHC 32.3 RDW Std Deviation 51.6 H RDW Coeff of Ruddy 16.3 H Plt Count 200 MPV 10.4 Immature Gran % (Auto) Neut % (Auto) Lymph % (Auto) [place] % (Auto) Eos % (Auto) Baso % (Auto) Neut # (Auto) Lymph # (Auto) [place] # (Auto) Eos # (Auto) Baso # (Auto) Immature Gran # (Auto) PT 10.6 INR 1.0 APTT 28.2 PTT Ratio 1.0 Fibrinogen POC Glucose Blood Type Blood Type Recheck Antibody Screen Crossmatch
[2020-05-02 12:16] LABS: Hematocrit (blood only) 24.8 % (37-47); Hemoglobin 8.2 g/dL (12.0-16.0)
[2020-05-02 16:15] LABS: Basophils # (auto) 0.03 K/uL (0-0.2); Basophils % (auto) 0.2 %; Eosinophils # (auto) 0.04 K/uL (0-0.5); Eosinophils % (auto) 0.2 %; Hematocrit (blood only) 25.6 % (37-47); Hemoglobin 8.5 g/dL (12.0-16.0); Immature Granulocytes # (auto) 0.19 K/uL (0.00-0.02); Lymphocytes # (auto) 2.24 K/uL (1.2-3.4); Lymphocytes % (auto) 11.4 %; Mean Corpuscular Hemoglobin 28.9 pg (25-34); Mean Corpuscular Hgb Conc 33.2 g/dL (32-36); Mean Corpuscular Volume 87.1 fL (80-100); Monocytes # (auto) 1.75 K/uL (0.11-0.59); Monocytes % (auto) 8.9 %; Neutrophils # (auto) 15.37 K/uL (1.4-6.5); Neutrophils % (auto) 78.3 %; Platelet Count 228 K/uL (130-400); RDW Coefficient of Variation 16.1 % (11.5-14.5); RDW Standard Deviation 51.3 fL (36.4-46.3); Red Blood Count 2.94 M/uL (4.2-5.4); White Blood Count 19.62 K/uL (4.8-10.8)
--- NOTE | 2020-05-02 17:10 | Obstetrical Progress Note ---
Date of Service May 02, 2020 Assessment & Plan Admission and Anticipated Discharge Date Admission Date: May 01, 2020 Physical Exam Constitutional: WD/WN, vitals as above comfortable Fundus firm urine output OK 60 ml. out from [facility] CBC in AM Results & Data ([facility]) Vital Signs (Past 12 Hours) Vital Signs Temp Pulse Resp BP Pulse Ox 05/02/20 17:04 104 H 96 05/02/20 16:59 106 H 98 05/02/20 16:58 102 H 118/58 L 05/02/20 16:54 104 H 97 05/02/20 16:49 103 H 98 05/02/20 16:44 99 H 96 05/02/20 16:39 105 H 97 05/02/20 16:37 100 H 115/62 05/02/20 16:34 106 H 97 05/02/20 16:29 103 H 96 05/02/20 16:24 101 H 96 05/02/20 16:19 102 H 96 05/02/20 16:14 104 H 96 05/02/20 16:09 103 H 95 05/02/20 16:04 105 H 98 05/02/20 15:59 104 H 96 05/02/20 15:58 102 H 121/63 05/02/20 15:54 100 H 95 05/02/20 15:49 100 H 94 05/02/20 15:44 102 H 95 05/02/20 15:39 105 H 96 05/02/20 15:34 106 H 95 05/02/20 15:29 108 H 96 05/02/20 15:24 96 H 96 05/02/20 15:19 110 H 96 05/02/20 15:15 36.8 C 18 05/02/20 15:14 107 H 96 05/02/20 15:09 106 H 96 05/02/20 15:04 108 H 96 05/02/20 14:59 103 H 96 05/02/20 14:54 97 H 107/64 99 05/02/20 14:49 98 H 96 05/02/20 14:44 103 H 97 05/02/20 14:39 102 H 97 05/02/20 14:34 105 H 97 05/02/20 14:29 100 H 95 05/02/20 14:24 100 H 96 05/02/20 14:19 100 H 95 05/02/20 14:14 102 H 96 05/02/20 14:09 102 H 96 05/02/20 14:04 96 H 97 05/02/20 14:02 100 H 115/57 L 05/02/20 13:59 99 H 96 05/02/20 13:54 102 H 97 05/02/20 13:49 101 H 97 05/02/20 13:44 105 H 98 05/02/20 13:39 97 H 99 05/02/20 13:34 98 H 98 05/02/20 13:29 100 H 98 05/02/20 13:24 102 H 98 05/02/20 13:19 99 H 99 05/02/20 13:14 98 H 95 05/02/20 13:09 100 H 98 05/02/20 13:04 108 H 99 05/02/20 13:02 97 H 109/59 L 05/02/20 12:59 102 H 98 05/02/20 12:54 100 H 96 05/02/20 12:49 108 H 98 05/02/20 12:44 107 H 99 05/02/20 12:39 104 H 99 05/02/20 12:34 97 H 97 05/02/20 12:29 101 H 98 05/02/20 12:24 100 H 97 05/02/20 12:19 108 H 99 05/02/20 12:14 100 H 98 05/02/20 12:09 96 H 98 05/02/20 12:04 97 H 96 05/02/20 11:59 89 113/58 L 97 05/02/20 11:54 94 H 97 05/02/20 11:49 99 H 97 05/02/20 11:44 101 H 98 05/02/20 11:39 99 H 97 05/02/20 11:34 99 H 97 05/02/20 11:29 100 H 97 05/02/20 11:24 96 H 97 05/02/20 11:19 106 H 99 05/02/20 11:14 107 H 97 05/02/20 11:09 107 H 97 05/02/20 11:04 101 H 97 05/02/20 11:03 100 H 118/57 L 05/02/20 11:00 36.9 C 20 05/02/20 10:59 104 H 97 05/02/20 10:54 99 H 97 05/02/20 10:49 100 H 97 05/02/20 10:44 99 H 96 05/02/20 10:39 103 H 96 05/02/20 10:34 104 H 97 05/02/20 10:29 95 H 95 05/02/20 10:24 101 H 97 05/02/20 10:19 108 H 96 05/02/20 10:14 108 H 96 05/02/20 10:09 109 H 97 05/02/20 10:04 100 H 96 05/02/20 10:03 98 H 20 109/55 L 05/02/20 09:59 99 H 96 05/02/20 09:54 96 H 95 05/02/20 09:49 97 H 96 05/02/20 09:44 95 H 96 05/02/20 09:39 96 H 96 05/02/20 09:34 95 H 95 05/02/20 09:29 96 H 96 05/02/20 09:24 102 H 95 05/02/20 09:19 96 H 96 05/02/20 09:14 96 H 96 05/02/20 09:09 96 H 95 05/02/20 09:05 100 H 112/58 L 05/02/20 09:04 100 H 97 05/02/20 09:03 36.5 C 99 H 20 112/58 L 97 05/02/20 08:59 99 H 96 05/02/20 08:54 100 H 98 05/02/20 08:49 101 H 98 05/02/20 08:44 100 H 97 05/02/20 08:39 103 H 96 05/02/20 08:34 105 H 97 05/02/20 08:29 107 H 97 05/02/20 08:24 108 H 97 05/02/20 08:20 36.5 C 105 H 20 118/61 97 05/02/20 08:19 101 H 97 05/02/20 08:14 102 H 97 05/02/20 08:09 105 H 97 05/02/20 08:04 106 H 97 05/02/20 07:59 109 H 97 05/02/20 07:54 106 H 97 05/02/20 07:52 106 H 102/57 L 05/02/20 07:50 36.9 C 99 H 18 102/57 L 97 05/02/20 07:49 98 H 97 05/02/20 07:44 93 H 96 05/02/20 07:39 96 H 96 05/02/20 07:35 37 C 95 H 20 101/59 L 96 05/02/20 07:34 37 C 95 H 20 101/59 L 96 05/02/20 07:29 93 H 96 05/02/20 07:24 98 H 96 05/02/20 07:19 36.9 C 94 H 20 111/59 L 96 05/02/20 07:14 95 H 97 05/02/20 07:09 91 H 96 05/02/20 07:04 93 H 97 05/02/20 07:01 92 H 110/55 L 05/02/20 06:59 94 H 98 05/02/20 06:54 100 H 98 05/02/20 06:49 95 H 96 05/02/20 06:44 95 H 97 05/02/20 06:39 102 H 96 05/02/20 06:34 95 H 97 05/02/20 06:29 93 H 96 05/02/20 06:24 86 96 05/02/20 06:19 89 97 05/02/20 06:14 87 97 05/02/20 06:09 90 97 05/02/20 06:04 94 H 97 05/02/20 06:01 88 102/56 L 05/02/20 06:00 16 05/02/20 05:59 90 96 05/02/20 05:54 90 98 05/02/20 05:49 95 H 97 05/02/20 05:44 91 H 97 05/02/20 05:39 92 H 97 05/02/20 05:34 92 H 97 05/02/20 05:29 94 H 97 05/02/20 05:24 90 97 05/02/20 05:19 91 H 97 05/02/20 05:14 89 96
[2020-05-02] MEDS ORDERED: bisacodyL 5 MG TABEC PO SCH (20:00)
[2020-05-03] MEDS: CLINDAMYCIN 900 MG in DEXTROSE 5% 50 ML IV SCH (00:15)
[2020-05-03] MEDS: METHYLERGONOVINE MALEATE 0.2 MG TAB PO SCH ×4 (00:17→12:03)
[2020-05-03 06:50] LABS: Basophils # (auto) 0.03 K/uL (0-0.2); Basophils % (auto) 0.2 %; Eosinophils # (auto) 0.27 K/uL (0-0.5); Hematocrit (blood only) 25.6 % (37-47); Hemoglobin 8.3 g/dL (12.0-16.0); Immature Granulocytes # (auto) 0.13 K/uL (0.00-0.02); Lymphocytes # (auto) 2.47 K/uL (1.2-3.4); Lymphocytes % (auto) 18.1 %; Mean Corpuscular Hemoglobin 28.7 pg (25-34); Mean Corpuscular Hgb Conc 32.4 g/dL (32-36); Mean Corpuscular Volume 88.6 fL (80-100); Mean Platelet Volume 10.3 fL (7.4-10.4); Monocytes # (auto) 1.25 K/uL (0.11-0.59); Monocytes % (auto) 9.2 %; Neutrophils # (auto) 9.48 K/uL (1.4-6.5); Neutrophils % (auto) 69.5 %; Platelet Count 218 K/uL (130-400); RDW Coefficient of Variation 16.5 % (11.5-14.5); RDW Standard Deviation 52.5 fL (36.4-46.3); Red Blood Count 2.89 M/uL (4.2-5.4); White Blood Count 13.63 K/uL (4.8-10.8)
[2020-05-03] MEDS: PRENATAL VITAMIN 1 TAB PO SCH (08:14)
[2020-05-03] MEDS: FERROUS SULFATE 325 MG TAB PO SCH (08:20)
[2020-05-03] MEDS: FLUOXETINE HCL 20 MG CAP PO SCH (08:20)
--- NOTE | 2020-05-03 08:53 | Obstetrical Progress Note ---
Date of Service May 03, 2020 Assessment & Plan Admission and Anticipated Discharge Date Admission Date: May 01, 2020 Physical Exam Physical Exam: abdomen soft and non tenderee no calf tenderness ambulating well vaginal bleeding scant hgb 8.3 patient is on methergine 0.2 mg po every 4 hours Results & Data ([facility]) Vital Signs (Past 12 Hours) Vital Signs Temp Pulse Pulse Pulse Resp BP BP 05/03/20 03:30 36.5 C 85 18 101/68 05/02/20 23:35 36.3 C L 98 H 18 107/69 05/02/20 23:09 36.4 C L 94 H 18 106/57 L 05/02/20 23:04 91 H 05/02/20 22:59 90 05/02/20 22:54 99 H 05/02/20 22:49 88 05/02/20 22:44 86 05/02/20 22:39 86 05/02/20 22:34 96 H 05/02/20 22:29 93 H 05/02/20 22:24 92 H 05/02/20 22:19 105 H 05/02/20 22:14 92 H 05/02/20 22:09 90 05/02/20 22:04 97 H 05/02/20 21:59 92 H 05/02/20 21:54 99 H 05/02/20 21:49 97 H 05/02/20 21:44 101 H 05/02/20 21:39 95 H 05/02/20 21:34 97 H 05/02/20 21:29 102 H 05/02/20 21:24 110 H 05/02/20 21:19 100 H 05/02/20 21:14 108 H 05/02/20 21:09 102 H 05/02/20 21:04 108 H 05/02/20 21:03 101 H 112/59 L 05/02/20 21:00 18 05/02/20 20:59 105 H 05/02/20 20:54 106 H Pulse Ox 05/03/20 03:30 98 05/02/20 23:35 97 05/02/20 23:09 98 05/02/20 23:04 97 05/02/20 22:59 96 05/02/20 22:54 98 05/02/20 22:49 95 05/02/20 22:44 96 05/02/20 22:39 96 05/02/20 22:34 97 05/02/20 22:29 97 05/02/20 22:24 97 05/02/20 22:19 97 05/02/20 22:14 98 05/02/20 22:09 97 05/02/20 22:04 97 05/02/20 21:59 97 05/02/20 21:54 97 05/02/20 21:49 97 05/02/20 21:44 98 05/02/20 21:39 98 05/02/20 21:34 96 05/02/20 21:29 97 05/02/20 21:24 98 05/02/20 21:19 97 05/02/20 21:14 97 05/02/20 21:09 96 05/02/20 21:04 97 05/02/20 21:03 05/02/20 21:00 05/02/20 20:59 97 05/02/20 20:54 97
--- NOTE | 2020-05-08 05:53 | Discharge Summary (DS) ---
DETAILS OF ADMISSION: The patient is a 19-year-old G1, P0 at 39 weeks and 4 days of gestation. She presented to labor and delivery on 05/01/2020 morning with spontaneous rupture of membrane, which was confirmed with a pelvic exam and she was in early labor. She was admitted initially expectantly managed and then her cervix did not change. She was started on oxytocin for induction of labor. Her was complicated by gestational diabetes, on insulin, asthma smoker, obesity and history of depression. Her fingersticks during labor were normal and she progressed to full dilatation and desired to push. She pushed for only 25 minutes and delivered the head without difficulty and baby delivery was uncomplicated. Baby was doing well. Apgars were normal. Right after delivery, the patient's uterus was boggy with a lot of clot in the uterus. Those were emptied manually, but she was still bleeding bright red blood despite emptying clots from the uterus and she was started IV oxytocin and she was given rectal Cytotec and IM Methergine and IM Hemabate. She was still bleeding and then on the bedside a boom curette was used to curette the uterine cavity. Only clots were found. No piece of placenta was seen. The proceeded with a Bakri balloon to control the bleeding. Bakri balloon was inflated and the bleeding stopped. Her vital signs became with a low blood pressure and tachycardia. Anesthesiology was called for a consult and Dr. Murphy started IV albumin and crystalloids and then 2 units of packed red blood cells were typed and crossed and 1 unit was given and then her vital signs became stable and bleeding was stopped and she was also placed in a Crane catheter to observe her urine output. She was also started on clindamycin. On postop period, the patient was doing well. Vital signs stable. No complaints. Abdomen was soft, nontender. Fundus was firm, below the umbilicus -2. Perineum is dry, no bleeding. Bakri bag had only 10 mL in the bag. She was also given tranexamic acid and the first unit of blood was stopped. Her H&H was repeated after the first unit, which came at 9.4/29.7 and a second unit was held. Overnight, her bleeding was minimal. Bakri balloon emptied only 81 mL of blood. Urine output was adequate. Her H&H dropped to 7.3/22.6 in the morning on postop day #1. Her coags, PT, PTT, INR, fibrinogen were normal. The patient was given a second unit of packed red blood cell on 05/02/2020 and I signed night her to Dr. Boyd. In the morning on day #1, she was seen by Dr. Boyd, the patient was doing well, no further bleeding. Fundus was firm. Abdomen was soft. Total of 100 mL of fluid was removed from Bakri. Her repeat H and H was 8.2/24.8. The patient was continuously monitored and then in the evening of day #1, Bakri balloon came out by itself and her bleeding was minimal. She was observed overnight. In the morning of day #2, the patient was seen by Dr. Hunt and abdomen was soft, nontender. Bleeding was scant. Hemoglobin was 8.3. She was ambulating, using bathroom, tolerating diet well. She was discharged on postoperative day #2. Discharge instructions were given. Prescriptions were written for pain. She is to be seen in the office for followup. JUANY
== END 2020-05-03 13:55 | disposition home or self-care (01) | DRG 768 ==
LOC: OPB 04:38 → 4S1 04:43 → 4S2 05-02 23:45